=== PATIENT | female | born 1990 | race Caucasian/White ===

== ENCOUNTER 2018-08-08 10:21 | Inpatient (IN) | payer OTHER ==
--- NOTE | 2018-08-08 10:51 | PDOC ---
History of Present Illness - General History Source: Patient Exam Limitations: No Limitations - History of Present Illness Initial Comments: 08/08/18 11:09 The patient is a 28 year old female, with no significant past medical history, who presents to the emergency department with left hand and left forearm pain, redness, and swelling since sustaining a dog bite to her anterior wrist on Thursday. 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 She states a friend had cephalexin at home and she reportedly took a 1,000 mg dose on Thursday. She states the redness, pain and swelling to left left forearm, wrist and hand have been increasing despite the dose of antibiotic. She states she is unable to make a fist secondary to pain and swelling. She states she can not fully extend her left digits secondary to a shooting pain radiating from her antecubital region to the palmar aspect of her proximal left hand. She reports severe pain on palpation of her left thumb and hand. She states she was "milking her arm" yesterday and "pus" came out from the bite. She denies draining since. She denies numbness or tingling to her left hand or digits. She denies alleviating factors of her symptoms. Secondarily, she states she felt very hot yesterday but denies taking her temperature. She states she has not eaten anything since last night. She states she is visiting her mother this weekend, but has a PCP where she live [facility] (Dr. Tran). The patient denies chest pain, shortness of breath, headache and dizziness. The patient denies fever, chills, nausea, vomit, diarrhea and constipation. The patient denies dysuria, frequency, urgency and hematuria. Allergies: NKDA Past surgical history: none reported <Miguelina Johansen - Last Filed: 08/08/18 11:27> <Hazel Méndez - Last Filed: 08/08/18 14:23> - General Chief Complaint: Bite Stated Complaint: DOG BITE Time Seen by Provider: 08/08/18 10:51 Past History <Miguelina Johansen - Last Filed: 08/08/18 11:27> - Past Medical History COPD: No - Immunization History Immunization Up to Date: Yes - Suicide/Smoking/Psychosocial Hx Smoking History: Never smoked Hx Alcohol Use: No Drug/Substance Use Hx: No <Hazel Méndez - Last Filed: 08/08/18 14:23> - Past Medical History Allergies/Adverse Reactions: Allergies Allergy/AdvReac Type Severity Reaction Status Date / Time No Known Allergies Allergy Verified 08/08/18 10:22 Review of Systems - Review of Systems Able to Perform ROS?: Yes Comments:: 08/08/18 11:10 GENERAL/CONSTITUTIONAL: No fever or chills. No weakness. HEAD, EYES, EARS, NOSE AND THROAT: No change in vision. No ear pain or discharge. No sore throat. GASTROINTESTINAL: No nausea, vomiting, diarrhea or constipation. GENITOURINARY: No dysuria, frequency, or change in urination. CARDIOVASCULAR: No chest pain or shortness of breath. RESPIRATORY: No cough, wheezing, or hemoptysis. MUSCULOSKELETAL: (+) left forearm, wrist, and hand pain and swelling. No neck or back pain. SKIN: (+) left forearm and left hand redness. NEUROLOGIC: No headache, vertigo, loss of consciousness, or change in strength/ sensation. ENDOCRINE: No increased thirst. No abnormal weight change. HEMATOLOGIC/LYMPHATIC: No anemia, easy bleeding, or history of blood clots. ALLERGIC/IMMUNOLOGIC: No hives or skin allergy. <Miguelina Johansen - Last Filed: 08/08/18 11:27> *Physical Exam - Vital Signs Last Vital Signs Temp Pulse Resp BP Pulse Ox 98.3 F 75 18 112/68 100 08/08/18 10:23 08/08/18 10:23 08/08/18 10:23 08/08/18 10:23 08/08/18 10:23 - Physical Exam Comments: 08/08/18 11:12 Constitutional: Awake, alert, oriented. No acute distress. Head: Normocephalic. Atraumatic Eyes: PERRL. EOMI. Conjunctivae are not pale. ENT: Mucous membranes are moist and intact. Posterior pharynx without exudates or erythema. Uvula midline. Neck: Supple. Full ROM. No lymphadenopathy. Cardiovascular: Regular rate. Regular rhythm. S1, S2 regular. Distal pulses are 2+ and symmetric. Pulmonary/Chest: No evidence of respiratory distress. Clear to auscultation bilaterally No wheezing, rales or rhonchi. Abdominal: Soft and non-distended. There is no tenderness. No rebound, guarding or rigidity. No organomegaly. No palpable masses. Good bowel sounds. Back: No CVA tenderness. Musculoskeletal: (+) The left upper extremity is edematous and cellulitic from mid forearm extending to palm and through the web space of 1st and 2nd digit as well as up the posterior aspect of the left thumb. Theres is tenderness on palpation to the left thumb. There is a puncture wound to the volar aspect of left wrist which is closed without active drainage. There is pain with flexion and extension of all left digits with increased pain with flexion/extension of the left thumb. The left forearm, wrist and hand is edematous. There is no area of fluctuance or induration. Compartments are soft. Sensation intact to light touch. No cyanosis. No clubbing. Nocalf tenderness. Radial/pedal pulses are intact and 2+ bilaterally Skin: Skin is warm and dry. No petechiae. No purpura. Neurological: Alert and oriented to person, place, and time. Cranial nerves II -XII are grossly intact. Normal speech. Strength is grossly symmetric. No sensory deficits. Psychiatric: Good eye contact. Normal interaction, affect and behavior. <Miguelina Johansen - Last Filed: 08/08/18 11:27> - Vital Signs Last Vital Signs Temp Pulse Resp BP Pulse Ox 98.3 F 75 18 112/68 100 08/08/18 10:23 08/08/18 10:23 08/08/18 10:23 08/08/18 10:23 08/08/18 10:23 <Hazel Méndez - Last Filed: 08/08/18 14:23> Moderate Sedation - Procedure Monitoring Vital Signs: Procedure Monitoring Vital Signs Temperature 98.3 F 08/08/18 10:23 Pulse Rate 75 08/08/18 10:23 Respiratory Rate 18 08/08/18 10:23 Blood Pressure 112/68 08/08/18 10:23 O2 Sat by Pulse Oximetry (%) 100 08/08/18 10:23 <Miguelina Johansen - Last Filed: 08/08/18 11:27> - Procedure Monitoring Vital Signs: Procedure Monitoring Vital Signs Temperature 98.3 F 08/08/18 10:23 Pulse Rate 75 08/08/18 10:23 Respiratory Rate 18 08/08/18 10:23 Blood Pressure 112/68 08/08/18 10:23 O2 Sat by Pulse Oximetry (%) 100 08/08/18 10:23 <Hazel Méndez - Last Filed: 08/08/18 14:23> ED Treatment Course - LABORATORY CBC & Chemistry Diagram: 08/08/18 12:10 08/08/18 12:10 <Hazel Méndez - Last Filed: 08/08/18 14:23> Medical Decision Making - Medical Decision Making 08/08/18 11:38 a/p: 28yo female with LUE cellulitis/dog bite that failed outpt abx -spreading cellulitis, spreading distally into hand and proximally up the forearm -took Keflex, worsening cellulitis -will send labs, cultures, broad spectrum abx -discussed the case with Dr. Gage who has seen the patient in consult from ortho - requests MRI w/wo contrast of LUE to eval for an abscess -call placed to plastics/hand - Dr. Mullen - pending call back -zosyn and vanco ordered 08/08/18 12:[address] Mullen - agrees with iv abx - agrees with admission unable to eval the patient in consult at this time as he is not in the state. 08/08/18 14:21 case discussed with [facility] who accepts pt to service <Hazel Méndez - Last Filed: 08/08/18 14:23> *DC/Admit/Observation/Transfer - Attestations Scribe Attestion: 08/08/18 11:17 Documentation prepared by Miguelina Johansen, acting as medical record administrator for Hazel Méndez DO <Miguelina Johansen - Last Filed: 08/08/18 11:27> - Discharge Dispostion Decision to Admit order: Yes - Attestations Physician Attestion: 08/08/18 14:23 I, Dr. Hazel Méndez DO, attest that this document has been prepared under my direction and personally reviewed by me in its entirety. I further attest, that it accurately reflects all work, treatment, procedures and medical decision -making performed by me. <Hazel Méndez - Last Filed: 12/23/18 14:23> Diagnosis at time of Disposition: Dog bite, Left arm cellulitis - Discharge Dispostion Condition at time of disposition: Fair
[2018-08-08] MEDS ORDERED: DIPHTH,PERTUSS(ACELL),TET 0.5 ML DISP.SYRIN IM ONE ×2 (11:05→17:08)
[2018-08-08] MEDS ORDERED: PIPERACILLIN/TAZOB 4.5 GM 4.5 GM in DEXTROSE 5%-WATER 100 ML IVPB ONE (11:05)
[2018-08-08] MEDS ORDERED: VANCOMYCIN 1 GRAM (PRE-DOCKED) 1,000 MG/250 ML BAG IVPB ONE ×2 (11:22→12:16)
--- NOTE | 2018-08-08 11:34 | CONSULT ---
Consult - text type - Consultation Consultation Note: ORTHOPEDIC SURGERY CONSULTATION NOTE Department of Orthopedic Surgery HISTORY OF PRESENT ILLNESS Sharron Rangel is a 28 year old female who resents to [facility] Emergency Room with a left wrist and arm cellullitis. The orthopedic service was consulted for left wrist cellulitis and 1st web-space with thumb pain. The injury occurred while at work, when her dog bit into her wrist. She took her friend's keflex oral antibiotics at home, however the erythema increased over the last couple days. She states the puncture wound was open and she was able to express some discharge, however it closed up since then. She has had no discharge since yesterday. The patient notes pain in her thumb, with erythema that has increased and began to move up her forearm. Denies any other injuries. Denies numbness, tingling or other constitutional complaints. Denies fever or chills. Denies/Endorses tobacco use, drug use, alcohol abuse. The patient lives alone at home with her dog. FAMILY HISTORY NA REVIEW OF SYMPTOMS A twelve-point review of systems was performed and was negative except as noted in HPI. PHYSICAL EXAM Constitutional: Alert and oriented to person, place, and time. Appears well- developed and well-nourished. No acute distress, appropriate mood and affect. Right Upper Extremity: Skin warm, dry, and intact; no lesions, rashes or ulcers noted. Muscle mass equal and symmetric to contralateral side. No atrophy noted. No masses or effusions noted. No tenderness to palpation all joints, nontender throughout rest of extremity. Full passive and active ROM, free from pain. Joints stable with no pathologic laxity. M/R/U/MSK/AX motor intact; SILT distally; 2+ radial pulses; Cap refill brisk. Tone and reflexes normal. Left Upper Extremity: Skin warm, dry. There is significant erythema at the level of her wrist, which tracks proximally. She also has erythema and swelling of her palm, and has pain with ROM of her thumb and index fingers. She is able to flex all fingers with pain. No atrophy noted. No fluctuance noted. Tender to palpation at the thenar eminence and thumb, nontender throughout rest of extremity. Full passive and active ROM, free from pain of the wrist, elbow and shoulder. Joints stable with no pathologic laxity. M/R/U/MSK/AX motor intact; SILT distally; 2+ radial pulses; Cap refill brisk. Tone and reflexes normal. Social History Smoking history Never smoked Hx Alcohol Use No Allergies Allergy/AdvReac Type Severity Reaction Status Date / Time No Known Allergies Allergy Verified 08/08/18 10:22 Active Medications Generic Name Dose Route Start Last Admin Trade Name Freq PRN Reason Stop Dose Admin Piperacillin Sod/Tazobactam 100 mls @ 200 mls/hr 08/08/18 11:05 Sod 4.5 gm/ Dextrose IVPB 08/08/18 11:34 ONCE ONE Protocol Vital Signs (last) Temp Pulse Resp BP Pulse Ox 98.3 F 75 18 112/68 100 08/08/18 10:23 08/08/18 10:23 08/08/18 10:23 08/08/18 10:23 08/08/18 10:23 Intake and Output 08/06/18 08/07/18 08/08/18 23:59 23:59 23:59 Other: Weight 150 lb Height 5 ft 3 in Body Mass Index (BMI) 26.5 Weight Measurement Method Est/Stated by Patient IMAGING X-rays of the left wrist and hand pending. MRI of the left wrist and hand pending. ASSESSMENT AND PLAN Ms. Rangel is a 28 year old female presenting with left hand and wrist cellulitis and swelling. We have reviewed the clinical findings in detail, as well as their potential implications. After appropriate informed discussion, the patient will be admitted for IV antibiotics and further imaging. FU MRI and Xray Left wrist and hand. NPO until MRI is obtained. Hand Surgery consult CBC/BMP/Coags CRP/ESR - Medical management (IV Abx, follow up labs) All questions were answered. Thank you for involving our team in the care of this patient. We will follow the patient with you. Please call us at with questions. Nicola Gage, DO Orthopedic Surgery
[2018-08-08] MEDS ORDERED: PIPERACILLIN/TAZOB 4.5 GM 4.5 GM/100 ML BAG IVPB ONE (12:16)
[2018-08-08 12:22] LABS: BASO % 0.5 % (0-2.0); EOS % 0.3 % (0-4.5); HEMATOCRIT 37.9 % (32.4-45.2); HEMOGLOBIN 13.4 GM/dL (10.7-15.3); LYMPH % 14.4 % (8-40); MCH 31.7 pg (25.7-33.7); MCHC 35.3 g/dl (32.0-36.0); MEAN CELL VOLUME 89.6 fl (80-96); MEAN PLT VOLUME 8.4 fl (7.5-11.1); MONO % 9.2 % (3.8-10.2); NEUT % 75.6 % (42.8-82.8); PLATELET COUNT 216 K/MM3 (134-434); RBC 4.23 M/mm3 (3.60-5.2); RDW 13.1 % (11.6-15.6)
[2018-08-08 12:48] LABS: HCG,QUALITATIVE URINE Negative
[2018-08-08 12:50] LABS: ALBUMIN 4.1 g/dl (3.4-5.0); ALK PHOS 78 U/L (45-117); ANION GAP 5 MMOL/L (8-16); BILIRUBIN,TOTAL 0.4 mg/dL (0.2-1); BLOOD UREA NITROGEN 10 mg/dL (7-18); CALCIUM 8.5 mg/dL (8.5-10.1); CHLORIDE 111 mmol/L (98-107); CO2 25 mmol/L (21-32); CREATININE 0.6 mg/dL (0.55-1.3); GLUCOSE,RANDOM 85 mg/dL (74-106); POTASSIUM 4.1 mmol/L (3.5-5.1); SGOT/AST 13 U/L (15-37); SGPT/ALT 14 U/L (13-61); SODIUM 142 mmol/L (136-145); TOT PROT 7.2 g/dl (6.4-8.2)
--- NOTE | 2018-08-08 13:23 | PN ---
Teaching Attending Note Name of Resident: Julia Baer ATTENDING PHYSICIAN STATEMENT I saw and evaluated the patient. I reviewed the resident's note and discussed the case with the resident. I agree with the resident's findings and plan as documented. SUBJECTIVE: Patient is a 28yo female presented with a dog bite from 2 days back, was bit by a [place] dog. She grooms dogs. No fever or chills, started to have swelling and erythema of the left hand and wrist area. OBJECTIVE: Vital Signs Temperature 98.3 F 08/08/18 10:23 Pulse Rate 75 08/08/18 10:23 Respiratory Rate 18 08/08/18 10:23 Blood Pressure 112/68 08/08/18 10:23 O2 Sat by Pulse Oximetry (%) 100 08/08/18 10:23 GENERAL: Awake, alert, and fully oriented, in no acute distress. HEAD: Normal with no signs of trauma. EYES: Pupils equal, round and reactive to light, extraocular movements intact, sclera anicteric, conjunctiva clear. EARS, NOSE, THROAT: Ears normal, oropharynx clear without exudates. Moist mucous membranes. NECK: Normal range of motion, supple without lymphadenopathy, JVD, or masses. LUNGS: Breath sounds equal, clear to auscultation bilaterally. No wheezes, and no crackles. No accessory muscle use. HEART: Regular rate and rhythm, normal S1 and S2 without murmur, rub or gallop. ABDOMEN: Soft, nontender, not distended, normoactive bowel sounds, no guarding, no rebound, no masses. No hepatomegaly or splenomegaly. MUSCULOSKELETAL: Normal range of motion at all joints. No bony deformities or tenderness. No CVA tenderness. EXTREMITIES: 2+ pulses, warm, well-perfused. positive for erythema of left wrist and hand. NEUROLOGICAL: Cranial nerves II-XII intact. Normal speech. Normal gait. PSYCHIATRIC: Cooperative. Good eye contact. Appropriate mood and affect. SKIN: Warm, dry, normal turgor, no rashes or lesions noted, normal capillary refill. CBCD WBC 7.0 K/mm3 (4.0-10.0) 08/08/18 12:10 RBC 4.23 M/mm3 (3.60-5.2) 08/08/18 12:10 Hgb 13.4 GM/dL (10.7-15.3) 08/08/18 12:10 Hct 37.9 % (32.4-45.2) 08/08/18 12:10 MCV 89.6 fl (80-96) 08/08/18 12:10 MCHC 35.3 g/dl (32.0-36.0) 08/08/18 12:10 RDW 13.1 % (11.6-15.6) 08/08/18 12:10 Plt Count 216 K/MM3 (134-434) 08/08/18 12:10 MPV 8.4 fl (7.5-11.1) 08/08/18 12:10 CMP Sodium 142 mmol/L (136-145) 08/08/18 12:10 Potassium 4.1 mmol/L (3.5-5.1) 08/08/18 12:10 Chloride 111 mmol/L (98-107) H 08/08/18 12:10 Carbon Dioxide 25 mmol/L (21-32) 08/08/18 12:10 Anion Gap 5 MMOL/L (8-16) L 08/08/18 12:10 BUN 10 mg/dL (7-18) 08/08/18 12:10 Creatinine 0.6 mg/dL (0.55-1.3) 08/08/18 12:10 Creat Clearance w eGFR > 60 (>60) 08/08/18 12:10 Random Glucose 85 mg/dL (74-106) 08/08/18 12:10 Calcium 8.5 mg/dL (8.5-10.1) 08/08/18 12:10 Total Bilirubin 0.4 mg/dL (0.2-1) 08/08/18 12:10 AST 13 U/L (15-37) L 08/08/18 12:10 ALT 14 U/L (13-61) 08/08/18 12:10 Alkaline Phosphatase 78 U/L (45-117) 08/08/18 12:10 Total Protein 7.2 g/dl (6.4-8.2) 08/08/18 12:10 Albumin 4.1 g/dl (3.4-5.0) 08/08/18 12:10 ASSESSMENT AND PLAN: Patient is a 28 year old female presenting with left hand and wrist cellulitis with swelling due to a dog bite. #Acute cellulitis of left hand and wrist due to dog bite, received IV antibiotic , teteanus shot, ID consulted, MRI result no osteo and abcess, just edema. cxr reviewed, Continue Zosyn IV , id will see the patient. DVt Px: early walking. low risk.
--- NOTE | 2018-08-08 13:35 | HP ---
CHIEF COMPLAINT:dog bite, Left hand wound PCP:Dr. Tran HISTORY OF PRESENT ILLNESS: Patient is a 28 year old female with no significant past medical history, presented with left hand wound, accompanied with pain, redness and swelling that started 2 days ago after a dog bite. 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 Patient reported the dog is complete with vaccinations. Few hours after the incident, patient noted pain, redness and swelling, spreading proximally to the forearm and distally to the palm. She took Cefalexin 1g that night. Yesterday, she noted worsening of the symptoms, as well as experiencing chills, and continued to take Cefalexin and Naproxen for pain. Today, patient came to the ED as the pain, swelling and redness has worsened. She also reported because of the pain, she can not close her left hand and form a fist, nor extend it fully. Patient denies fever, headache, dizziness, nausea, vomiting, chest pain, SOB, palpitations, abdominal pain, diarrhea, constipation or urinary symptoms. ER course was notable for: (1)DPT vaccine, IV vancomycin 1000mg, Zosyn 4.5gm (2)Left hand and wrist xray, LUE MRI with and without contrast (3)CRP 9.7 Recent Travel:denies PAST MEDICAL HISTORY: None PAST SURGICAL HISTORY: None Social History: Smoking:denies Alcohol:denies Drugs: denies Lives with . 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 Family History: Patient is adopted. Her adoptive parents are healthy otherwise. Allergies No Known Allergies Allergy (Verified 08/08/18 10:22) HOME MEDICATIONS: REVIEW OF SYSTEMS CONSTITUTIONAL: Absent: fever, chills, diaphoresis, generalized weakness, malaise, loss of appetite, weight change HEENT: Absent: rhinorrhea, nasal congestion, throat pain, throat swelling, difficulty swallowing, mouth swelling, ear pain, eye pain, visual changes CARDIOVASCULAR: Absent: chest pain, syncope, palpitations, irregular heart rate, lightheadedness , peripheral edema RESPIRATORY: Absent: cough, shortness of breath, dyspnea with exertion, orthopnea, wheezing, stridor, hemoptysis GASTROINTESTINAL: Absent: abdominal pain, abdominal distension, nausea, vomiting, diarrhea, constipation, melena, hematochezia GENITOURINARY: Absent: dysuria, frequency, urgency, hesitancy, hematuria, flank pain, genital pain MUSCULOSKELETAL: Absent: myalgia, arthralgia, joint swelling, back pain, neck pain, left hand swelling, redness SKIN: Absent: rash, itching, pallor HEMATOLOGIC/IMMUNOLOGIC: Absent: easy bleeding, easy bruising, lymphadenopathy, frequent infections ENDOCRINE: Absent: unexplained weight gain, unexplained weight loss, heat intolerance, cold intolerance NEUROLOGIC: Absent: headache, focal weakness or paresthesias, dizziness, unsteady gait, seizure, mental status changes, bladder or bowel incontinence PSYCHIATRIC: Absent: anxiety, depression, suicidal or homicidal ideation, hallucinations. PHYSICAL EXAMINATION Vital Signs - 24 hr 08/08/18 10:23 Temperature 98.3 F Pulse Rate 75 Respiratory 18 Rate Blood Pressure 112/68 O2 Sat by Pulse 100 Oximetry (%) GENERAL: Awake, alert, and fully oriented, in no acute distress. HEAD: Normal with no signs of trauma. EYES: PERRLA, EOMI, sclera anicteric, conjunctiva clear. No lid lag. EARS, NOSE, THROAT: Ears normal, nares patent, oropharynx clear without exudates. Moist mucous membranes. NECK: Normal range of motion, supple without lymphadenopathy, JVD, or masses. LUNGS: Breath sounds equal, clear to auscultation bilaterally. HEART: Regular rate and rhythm, normal S1 and S2 without murmur, rub or gallop. ABDOMEN: Soft, nontender, not distended, normoactive bowel sounds. LUE: +erythema, swelling, tenderness of palm and anterior forearm. +closed wound in the anterior wrist. Flexion, extension, abduction,adduction of fingers , as well as flexion and extension of wrist limited due to pain. Unable to make a fist. UPPER EXTREMITIES: 2+ pulses, warm, well-perfused. No cyanosis. LOWER EXTREMITIES: 2+ pulses, warm, well-perfused. No calf tenderness. No peripheral edema. NEUROLOGICAL: AAOx3, Cranial nerves II-XII intact. Normal speech. Normal gait. PSYCHIATRIC: Cooperative. Good eye contact. Appropriate mood and affect. SKIN: Warm, dry, normal turgor, no rashes or lesions noted, normal capillary refill. Laboratory Results - last 24 hr 12/23/18 12/23/18 12/23/18 12:10 12:10 12:10 WBC 7.0 RBC 4.23 Hgb 13.4 Hct 37.9 MCV 89.6 MCH 31.7 MCHC 35.3 RDW 13.1 Plt Count 216 MPV 8.4 Absolute Neuts (auto) 5.3 Neutrophils % 75.6 Lymphocytes % 14.4 Monocytes % 9.2 Eosinophils % 0.3 Basophils % 0.5 Nucleated RBC % 0 Sodium 142 Potassium 4.1 Chloride 111 H Carbon Dioxide 25 Anion Gap 5 L BUN 10 Creatinine 0.6 Creat Clearance w eGFR > 60 Random Glucose 85 Lactic Acid 0.4 Calcium 8.5 Total Bilirubin 0.4 AST 13 L ALT 14 Alkaline Phosphatase 78 C-Reactive Protein 9.7 H Total Protein 7.2 Albumin 4.1 Urine HCG, Qual 08/08/18 12:23 WBC RBC Hgb Hct MCV MCH MCHC RDW Plt Count MPV Absolute Neuts (auto) Neutrophils % Lymphocytes % Monocytes % Eosinophils % Basophils % Nucleated RBC % Sodium Potassium Chloride Carbon Dioxide Anion Gap BUN Creatinine Creat Clearance w eGFR Random Glucose Lactic Acid Calcium Total Bilirubin AST ALT Alkaline Phosphatase C-Reactive Protein Total Protein Albumin Urine HCG, Qual Negative ASSESSMENT/PLAN: Patient is a 28 year old female with no significant past medical history, presented with left hand wound, accompanied with pain, redness and swelling that started 2 days ago after a dog bite. #Cellulitis, 2/2 to dog bite -Left hand/forearm Xray done -LUE MRI: Soft tissue swelling at the palpable site in the superior and anterior aspect of the left wrist compatible with cellulitis or edema. No evidence of abscess collection. No evidence of osteomyelitis. No evidence of flexor tendons tear or retraction. No evidence of tenosynovitis. -Ortho (Dr. Gage) consulted. Recommendations appreciated. -ID (Dr. Amanda) consulted. -Blood cultures pending -Tetanus vaccine given at the ED -IV Vancomycin 1gm and IV Zosyn 4.5 gm given at the ED -CRP/ESR pending #FEN -Not on any standing fluids. -Encourage increased oral fluid intake -electrolytes wnl, routine bmp monitoring -regular diet #Prophylaxis -early ambulation #Disposition -full code -admit to med-surg Visit type - Emergency Visit Emergency Visit: Yes ED Registration Date: 08/08/18 Care time: The patient presented to the Emergency Department on the above date and was hospitalized for further evaluation of their emergent condition. - New Patient This patient is new to me today: Yes Date on this admission: 08/08/18 - Critical Care Critical Care patient: No
[2018-08-08 14:18] LABS: URINE APPEARANCE CLOUDY; URINE BILIRUBIN NEGATIVE (<2.0 mg/dL); URINE COLOR DKYELLOW; URINE GLUCOSE (UA) NEGATIVE (NEGATIVE); URINE KETONE NEGATIVE (NEGATIVE); URINE LEUK ESTERASE 1+ (NEGATIVE); URINE NITRITE NEGATIVE (NEGATIVE); URINE PROTEIN 1+ (NEGATIVE); URINE UROBILINOGEN NEGATIVE mg/dL (0.2-1.0)
[2018-08-08 14:54] LABS: EPI CELLS FEW /HPF (FEW); URINE BACTERIA MODERATE /hpf (NONE SEEN); URINE MUCUS MANY
[2018-08-08] MEDS ORDERED: PIPERACILLIN/TAZOBACTAM 3.375 GM VIAL IVPB ONE (19:58)
[2018-08-08] MEDS: PIPERACILLIN/TAZOB 3.375 GM 3.375 GM in DEXTROSE 5%-WATER - 50 ML IVPB SCH (19:58)
[2018-08-08] MEDS ORDERED: DEXTROSE 5%-WATER - 50 ML IVPB ONE (19:59)
[2018-08-08] MEDS ORDERED: PT OWN MED DRAWER 7, Y5N ONE (21:20)
[2018-08-08] MEDS ORDERED: ACETAMINOPHEN 325 MG TABLET (FP) PO PRN (22:42)
[2018-08-09] MEDS ORDERED: PIPERACILLIN/TAZOBACTAM 3.375 GM VIAL IVPB ONE ×2 (01:10→10:01)
[2018-08-09] MEDS ORDERED: DEXTROSE 5%-WATER - 50 ML IVPB ONE ×2 (01:10→10:01)
[2018-08-09] MEDS: PIPERACILLIN/TAZOB 3.375 GM 3.375 GM in DEXTROSE 5%-WATER - 50 ML IVPB SCH ×3 (01:31→11:59)
[2018-08-09 02:32] VITALS: BMI 27.3
[2018-08-09 08:04] LABS: BASO % 0.7 % (0-2.0); EOS % 1.8 % (0-4.5); HEMATOCRIT 35.3 % (32.4-45.2); HEMOGLOBIN 11.8 GM/dL (10.7-15.3); LYMPH % 23.5 % (8-40); MCH 30.1 pg (25.7-33.7); MCHC 33.5 g/dl (32.0-36.0); MEAN CELL VOLUME 89.7 fl (80-96); MEAN PLT VOLUME 8.9 fl (7.5-11.1); MONO % 12.1 % (3.8-10.2); NEUT % 61.9 % (42.8-82.8); PLATELET COUNT 198 K/MM3 (134-434); RBC 3.94 M/mm3 (3.60-5.2); RDW 12.8 % (11.6-15.6); WHITE BLOOD COUNT 5.2 K/mm3 (4.0-10.0)
[2018-08-09 08:24] LABS: ANION GAP 7 MMOL/L (8-16); BLOOD UREA NITROGEN 10 mg/dL (7-18); CALCIUM 8.3 mg/dL (8.5-10.1); CHLORIDE 110 mmol/L (98-107); CO2 24 mmol/L (21-32); CREATININE 0.5 mg/dL (0.55-1.3); GLUCOSE,RANDOM 92 mg/dL (74-106); MAGNESIUM 2.2 mg/dL (1.8-2.4); PHOSPHOROUS 4.4 mg/dL (2.5-4.9); POTASSIUM 4.2 mmol/L (3.5-5.1); SODIUM 141 mmol/L (136-145)
--- NOTE | 2018-08-09 10:14 | CON.ID ---
Consult Consult Specialty:: infectious disease Referred by:: hosplitalist Reason for Consultation:: cellulitis s/p dog bite - History of Present Illness Chief Complaint: left hand dog bite History of Present Illness: 28 yo female admitted after she sustained a dog bite to her left hand on Thursday while at work-dog is UTD on vaccines SHe soaked the woud in iodine and wrapped it she started taking cephelexin 100 mg bid after going home (her friend s medicine) and naprosyn she noted the arm got worse and she came to ED last night MRI of the arm no abscess or osteo +STS started on vanco/zosyn no fevers otherwise well - History Source History Provided By: Patient, Medical Record Limitations to Obtaining History: No Limitations - Past Medical History Reproductive: Yes: Other (IUD) - Alcohol/Substance Use Hx Alcohol Use: No - Smoking History Smoking history: Never smoked - Social History Usual Living Arrangement: With Spouse ADL: Independent Occupation: [employer] Home Medications - Allergies Allergies/Adverse Reactions: Allergies Allergy/AdvReac Type Severity Reaction Status Date / Time No Known Allergies Allergy Verified 08/08/18 10:22 - Home Medications Home Medications: Ambulatory Orders NK [No Known Home Medication] 08/08/18 Family Disease History - Family Disease History Family History: Unable to Obtain (adoopted) Review of Systems - Review of Systems Constitutional: reports: No Symptoms, Chills, Diaphoresis, Fever Eyes: reports: No Symptoms HENT: reports: No Symptoms Neck: reports: No Symptoms Cardiovascular: reports: No Symptoms Respiratory: reports: No Symptoms Gastrointestinal: reports: No Symptoms Musculoskeletal: reports: Other (hand pain, unable to make a fist) Physical Exam Vital Signs: Vital Signs Temperature 97.7 F 08/09/18 06:00 Pulse Rate 56 L 08/09/18 06:00 Respiratory Rate 18 08/09/18 06:00 Blood Pressure 92/56 L 08/09/18 06:00 O2 Sat by Pulse Oximetry (%) 100 08/08/18 18:16 Constitutional: Yes: Well Nourished, No Distress, Calm Eyes: Yes: Conjunctiva Clear, EOM Intact HENT: Yes: Atraumatic, Normocephalic Neck: Yes: Supple, Trachea Midline Cardiovascular: Yes: Regular Rate and Rhythm Respiratory: Yes: Regular, CTA Bilaterally Gastrointestinal: Yes: Normal Bowel Sounds ...Rectal Exam: Yes: Deferred Musculoskeletal: Yes: Other (erythema left hand extending to forearm no fluctuance unable to make a fist no axillary adenopathy, no lylmphangitic streaking) Neurological: Yes: Alert, Oriented Labs: CBC, BMP 08/09/18 07:00 08/09/18 07:00 Laboratory Tests 08/08/18 08/08/18 12:10 12:10 ESR 18 C-Reactive Protein 9.7 H Imaging - Results X-ray: Report Reviewed MRI: Report Reviewed Problem List - Problems (1) Infected dog bite Code(s): W54.0XXA - BITTEN BY DOG, INITIAL ENCOUNTER; L08.9 - LOCAL INFECTION OF THE SKIN AND SUBCUTANEOUS TISSUE, UNSP Assessment/Plan continue vancomycin and zosyn f/u cultures no signs abscess or osteo on MRI day #1 antiibotics surgery following s/p tetanus toxoid
[2018-08-09] MEDS ORDERED: DEXTROSE 5%-WATER 100 ML IVPB ONE ×2 (11:09→18:09)
[2018-08-09] MEDS ORDERED: PIPERACILLIN/TAZOBACTAM 4.5 GM VIAL IVPB ONE ×2 (11:09→18:09)
--- NOTE | 2018-08-09 11:09 | PN ---
Progress Note (short form) - Note Progress Note: ORTHOPEDIC SURGERY PROGRESS NOTE Department of Orthopedic Surgery SUBJECTIVE No acute events overnight. No complaints currently. Denies chest pain, shortness of breath, or calf pain. No nausea or vomiting. Tolerating oral intake. Pain control difficult overnight, but improving. Patient stated she had some difficulty sleeping last night. PHYSICAL EXAMINATION General: Alert, oriented, cooperative and no distress. Left Upper Extremity: Skin intact, erythema has increased past markings. Muscle mass equal and symmetric to contralateral side. No atrophy noted. No masses or effusions noted. No tenderness to palpation. Improved ROM of the thumb and wrist. M/R/U/MSK/AX motor intact; SILT distally; 2+ radial pulses; Cap refill brisk. Intake & Output 08/07/18 08/08/18 08/09/18 23:59 23:59 23:59 Intake Total 400 400 Balance 400 400 Intake: IVPB 100 Oral 400 300 Other: Voiding Method Toilet Toilet # Unmeasured Voids Void 1 2 Bowel Movement No Weight 150 lb 154 lb 9 oz Height 5 ft 3 in 5 ft 3 in Body Mass Index (BMI) 26.5 27.3 Weight Measurement Method Built in [facility] Weight Measurement Method Est/Stated by Patient Active Medications Generic Name Dose Route Start Last Admin Trade Name Freq PRN Reason Stop Dose Admin Acetaminophen 650 mg 08/08/18 22:42 Tylenol - PO Q4H PRN FEVER Vancomycin HCl 1,000 mg in 250 mls @ 166.667 mls/hr 08/09/18 11:00 Vancomycin (Pre-Docked) IVPB Q12H LEOLA Protocol Piperacillin Sod/Tazobactam 100 mls @ 200 mls/hr 08/09/18 10:30 Sod 4.5 gm/ Dextrose IVPB Q8H-IV LEOLA Protocol Naproxen 500 mg 08/09/18 10:30 Naprosyn - PO 08/10/18 22:01 BID LEOLA Pantoprazole Sodium 40 mg 08/09/18 10:30 Protonix - PO DAILY LEOLA Vital Signs (last) Temp Pulse Resp BP Pulse Ox 97.7 F 56 L 18 92/56 L 100 08/09/18 06:00 08/09/18 06:00 08/09/18 06:00 08/09/18 06:00 08/08/18 18:16 Laboratory 08/09/18 07:00 08/09/18 07:00 IMAGING MRI Left wrist / hand: +Edema and cellulitis, no signs of osteomyelitis or abscess. ASSESSMENT AND PLAN Ms. Rangel is a 28 year old female presenting with left hand and wrist cellulitis and swelling s/p dog bite. - Pain Control - Appreciate ID recommendations - Medical management appreciated (IV Abx, follow up blood cx) - No orthopedic intervention at this time - Will follow closely All questions were answered. Nicola Gage, DO Orthopedic Surgery
[2018-08-09] MEDS: PIPERACILLIN/TAZOB 4.5 GM 4.5 GM in DEXTROSE 5%-WATER 100 ML IVPB SCH ×2 (11:15→18:18)
[2018-08-09] MEDS ORDERED: PT OWN MED DRAWER 7, Y5N ONE ×3 (12:01→21:41)
[2018-08-09] MEDS: PANTOPRAZOLE 40 MG TABLET (FP) PO SCH (12:04)
[2018-08-09] MEDS: VANCOMYCIN 1 GRAM (PRE-DOCKED) 1,000 MG/250 ML BAG IVPB SCH ×2 (12:04→22:39)
--- NOTE | 2018-08-09 12:10 | PN ---
Physical Exam: SUBJECTIVE: Patient seen and examined at bedside this morning. Patient reported she was not able to sleep last night because of all the noise and wants to go home. Redness on her hand is noted to spread further than the line drawn yesterday. Patient denies any worsening pain or swelling. Denies any fever, chills, headache, numbness, weakness or tingling. OBJECTIVE: Vital Signs Period Temp Pulse Resp BP Sys/Morton Pulse Ox Last 24 Hr 97.7 F-98.3 F 56-86 18-20 92-121/56-77 100-100 GENERAL: Awake, alert, and fully oriented, in no acute distress. HEAD: Normal with no signs of trauma. EYES: PERRLA, EOMI, sclera anicteric, conjunctiva clear. No lid lag. EARS, NOSE, THROAT: Ears normal, nares patent, oropharynx clear without exudates. Moist mucous membranes. NECK: Normal range of motion, supple without lymphadenopathy, JVD, or masses. LUNGS: Breath sounds equal, clear to auscultation bilaterally. HEART: Regular rate and rhythm, normal S1 and S2 without murmur, rub or gallop. ABDOMEN: Soft, nontender, not distended, normoactive bowel sounds. LUE: +erythema, swelling, tenderness of palm and anterior forearm. Erythema noted to spread further proximally than the line drawn, +closed, non-draining wound in the anterior wrist. Flexion, extension, abduction,adduction of fingers , as well as flexion and extension of wrist limited due to pain. Unable to make a fist. UPPER EXTREMITIES: 2+ pulses, warm, well-perfused. No cyanosis. LOWER EXTREMITIES: 2+ pulses, warm, well-perfused. No calf tenderness. No peripheral edema. NEUROLOGICAL: AAOx3, Cranial nerves II-XII intact. Normal speech. Normal gait. PSYCHIATRIC: Cooperative. Good eye contact. Appropriate mood and affect. SKIN: Warm, dry, normal turgor, no rashes or lesions noted, normal capillary refill. Laboratory Results - last 24 hr 08/08/18 08/08/18 08/08/18 12:10 12:10 12:10 WBC RBC Hgb Hct MCV MCH MCHC RDW Plt Count MPV Absolute Neuts (auto) Neutrophils % Lymphocytes % Monocytes % Eosinophils % Basophils % Nucleated RBC % ESR 18 Sodium 142 Potassium 4.1 Chloride 111 H Carbon Dioxide 25 Anion Gap 5 L BUN 10 Creatinine 0.6 Creat Clearance w eGFR > 60 Random Glucose 85 Lactic Acid 0.4 Calcium 8.5 Phosphorus Magnesium Total Bilirubin 0.4 AST 13 L ALT 14 Alkaline Phosphatase 78 C-Reactive Protein 9.7 H Total Protein 7.2 Albumin 4.1 Urine Color Urine Appearance Urine pH Ur Specific [place] Urine Protein Urine Glucose (UA) Urine Ketones Urine Blood Urine Nitrite Urine Bilirubin Urine Urobilinogen Ur Leukocyte Esterase Urine WBC (Auto) Urine RBC (Auto) Ur Epithelial Cells Urine Bacteria Urine Mucus Urine HCG, Qual 08/08/18 08/08/18 08/09/18 12:10 12:23 07:00 WBC 7.0 5.2 RBC 4.23 3.94 Hgb 13.4 11.8 Hct 37.9 35.3 MCV 89.6 89.7 MCH 31.7 30.1 MCHC 35.3 33.5 RDW 13.1 12.8 Plt Count 216 198 MPV 8.4 8.9 Absolute Neuts (auto) 5.3 3.2 Neutrophils % 75.6 61.9 Lymphocytes % 14.4 23.5 D Monocytes % 9.2 12.1 H Eosinophils % 0.3 1.8 D Basophils % 0.5 0.7 Nucleated RBC % 0 0 ESR Sodium Potassium Chloride Carbon Dioxide Anion Gap BUN Creatinine Creat Clearance w eGFR Random Glucose Lactic Acid Calcium Phosphorus Magnesium Total Bilirubin AST ALT Alkaline Phosphatase C-Reactive Protein Total Protein Albumin Urine Color Dkyellow Urine Appearance Cloudy Urine pH 5.0 Ur Specific [place] 1.026 Urine Protein 1+ H Urine Glucose (UA) Negative Urine Ketones Negative Urine Blood 1+ H Urine Nitrite Negative Urine Bilirubin Negative Urine Urobilinogen Negative Ur Leukocyte Esterase 1+ H Urine WBC (Auto) 5 Urine RBC (Auto) 5 Ur Epithelial Cells Few Urine Bacteria Moderate Urine Mucus Many Urine HCG, Qual Negative 08/09/18 07:00 WBC RBC Hgb Hct MCV MCH MCHC RDW Plt Count MPV Absolute Neuts (auto) Neutrophils % Lymphocytes % Monocytes % Eosinophils % Basophils % Nucleated RBC % ESR Sodium 141 Potassium 4.2 Chloride 110 H Carbon Dioxide 24 Anion Gap 7 L BUN 10 Creatinine 0.5 L Creat Clearance w eGFR > 60 Random Glucose 92 Lactic Acid Calcium 8.3 L Phosphorus 4.4 Magnesium 2.2 Total Bilirubin AST ALT Alkaline Phosphatase C-Reactive Protein Total Protein Albumin Urine Color Urine Appearance Urine pH Ur Specific [place] Urine Protein Urine Glucose (UA) Urine Ketones Urine Blood Urine Nitrite Urine Bilirubin Urine Urobilinogen Ur Leukocyte Esterase Urine WBC (Auto) Urine RBC (Auto) Ur Epithelial Cells Urine Bacteria Urine Mucus Urine HCG, Qual Active Medications Generic Name Dose Route Start Last Admin Trade Name Freq PRN Reason Stop Dose Admin Acetaminophen 650 mg 08/08/18 22:42 Tylenol - PO Q4H PRN FEVER Vancomycin HCl 1,000 mg in 250 mls @ 166.667 mls/hr 08/09/18 11:00 08/09/18 12:04 Vancomycin (Pre-Docked) IVPB 166.667 mls/hr Q12H LEOLA Administration Protocol Piperacillin Sod/Tazobactam 100 mls @ 200 mls/hr 08/09/18 10:30 08/09/18 11: 15 Sod 4.5 gm/ Dextrose IVPB 200 mls/hr Q8H-IV LEOLA Administration Protocol Naproxen 500 mg 08/09/18 10:30 Naprosyn - PO 08/10/18 22:01 BID LEOLA Pantoprazole Sodium 40 mg 08/09/18 10:30 08/09/18 12:04 Protonix - PO 40 mg DAILY LEOLA Administration ASSESSMENT/PLAN: Patient is a 28 year old female with no significant past medical history, presented with left hand wound, accompanied with pain, redness and swelling that started 2 days ago after a dog bite. #Cellulitis, 2/2 to dog bite -Left hand/forearm Xray done -LUE MRI: Soft tissue swelling at the palpable site in the superior and anterior aspect of the left wrist compatible with cellulitis or edema. No evidence of abscess collection. No evidence of osteomyelitis. No evidence of flexor tendons tear or retraction. No evidence of tenosynovitis. -Ortho (Dr. Gage) consulted. Recommendations appreciated. -pain management -Naproxen 500mg BID PRN for pain -Hand surgery (Dr. Whitaker) consulted. -ID (Dr. Perez) consulted. Recommendations appreciated. -Blood cultures - no growth for 24 hours -Tetanus vaccine given at the ED -IV Vancomycin 1gm and IV Zosyn 4.5 gm given at the ED -Continue Vanc and Zosyn #FEN -Not on any standing fluids. -Encourage increased oral fluid intake -electrolytes wnl, routine bmp monitoring -regular diet #Prophylaxis -early ambulation #Disposition -full code -admit to med-surg Visit type - Emergency Visit Emergency Visit: Yes ED Registration Date: 08/08/18 Care time: The patient presented to the Emergency Department on the above date and was hospitalized for further evaluation of their emergent condition. - New Patient This patient is new to me today: No - Critical Care Critical Care patient: No
[2018-08-09] MEDS: NAPROXEN 500 MG TABLET (FP) PO SCH ×2 (12:38→21:41)
--- NOTE | 2018-08-09 13:50 | CONSULT ---
Consult Consult Specialty:: Hand and Microsurgery Reason for Consultation:: left hand dog bite - History of Present Illness Chief Complaint: left hand dog bite History of Present Illness: 28 yo RHD female no significant PMH presented with left hand wound, accompanied with pain, redness and swelling that started 2 days ago after a dog bite. Patient works as a groomer in a [employer] when a husky dog almost fell while grooming, and she was trying to catch him, startling the dog and subsequently bit her on the anterior wrist. Patient reported the dog is complete with vaccinations. Few hours after the incident, patient noted pain, redness and swelling, spreading proximally to the forearm and distally to the palm. She took Cefalexin 1g that night. Yesterday, she noted worsening of the symptoms, as well as experiencing chills, and continued to take Cefalexin and Naproxen for pain. Today, patient came to the ED as the pain, swelling and redness has worsened. She also reported because of the pain, she can not close her left hand and form a fist, nor extend it fully. Patient denies fever, headache, dizziness, nausea, vomiting, chest pain, SOB, palpitations, abdominal pain, diarrhea, constipation or urinary symptoms. - History Source History Provided By: Patient, Medical Record Limitations to Obtaining History: No Limitations - Alcohol/Substance Use Hx Alcohol Use: No - Smoking History Smoking history: Never smoked - Social History Usual Living Arrangement: With Spouse ADL: Independent Occupation: [employer] Home Medications - Allergies Allergies/Adverse Reactions: Allergies Allergy/AdvReac Type Severity Reaction Status Date / Time No Known Allergies Allergy Verified 08/08/18 10:22 - Home Medications Home Medications: Ambulatory Orders NK [No Known Home Medication] 08/08/18 Review of Systems - Review of Systems Constitutional: denies: Chills, Fever Eyes: denies: Blind Spots, Recent Change in Vision HENT: denies: Difficult Swallowing, Throat Pain Neck: denies: Decreased ROM, Pain on Movement Cardiovascular: denies: Chest Pain, Palpitations Respiratory: denies: Cough, SOB Gastrointestinal: denies: Abdominal Pain, Constipation, Diarrhea Genitourinary: denies: Discharge, Dysuria Breasts: denies: No Symptoms Reported Musculoskeletal: reports: Joint Pain, Joint Swelling Integumentary: reports: Erythema. denies: Lesions Neurological: denies: Seizure, Syncope Endocrine: denies: Unexplained Weight Gain, Unexplained Weight Loss Hematology/Lymphatic: denies: Easily Bruised, Excessive Bleeding Psychiatric: denies: Anxiety, Depression Physical Exam Vital Signs: Vital Signs Temperature 97.7 F 08/09/18 06:00 Pulse Rate 56 L 08/09/18 06:00 Respiratory Rate 18 08/09/18 06:00 Blood Pressure 92/56 L 08/09/18 06:00 O2 Sat by Pulse Oximetry (%) 100 08/08/18 18:16 Constitutional: Yes: Well Nourished, No Distress Eyes: Yes: Conjunctiva Clear, EOM Intact HENT: Yes: Atraumatic, Normocephalic Neck: Yes: Supple, Trachea Midline Cardiovascular: Yes: Regular Rate and Rhythm, S1, S2 Respiratory: Yes: Regular, CTA Bilaterally Gastrointestinal: Yes: Normal Bowel Sounds, Soft. No: Tenderness ...Rectal Exam: Yes: Deferred Renal/: No: CVA Tenderness - Left, CVA Tenderness - Right Musculoskeletal: No: Muscle Pain, Muscle Weakness Extremities: Yes: Erythema (left hand dorsal thumb. edema and limited ROM). No : Cool, Cyanosis Edema: LUE: 2+ Integumentary: No: Incision, Venous Stasis Changes Wound/Incision: Yes: Clean/Dry, Well Approximated, Dressing Dry and Intact Neurological: Yes: Alert, Oriented Psychiatric: Yes: Alert, Oriented Labs: CBC, BMP 08/09/18 07:00 08/09/18 07:00 Imaging - Results X-ray: Report Reviewed, Image Reviewed (no fracture dislocation or foreign body) MRI: Report Reviewed, Image Reviewed (soft tissue swelling) Problem List - Problems (1) Dog bite of left hand without complication Assessment/Plan: 28yo female with left hand dog bite with, no acute surgical intervention is indicated apprriate screening for communicable disease and inoculation Tentanus ID for IV and oral antibitics elevation of left arm above the heart will follow peripeghally Thank you for the opportunity to participate in the care of this patient. Code(s): S61.452A - OPEN BITE OF LEFT HAND, INITIAL ENCOUNTER; W54.0XXA - BITTEN BY DOG, INITIAL ENCOUNTER Qualifiers: Encounter type: initial encounter Qualified Code(s): S61.452A - Open bite of left hand, initial encounter; W54.0XXA - Bitten by dog, initial encounter (2) Dog bite of left hand Code(s): S61.452A - OPEN BITE OF LEFT HAND, INITIAL ENCOUNTER; W54.0XXA - BITTEN BY DOG, INITIAL ENCOUNTER Qualifiers: Encounter type: initial encounter Qualified Code(s): S61.452A - Open bite of left hand, initial encounter; W54.0XXA - Bitten by dog, initial encounter (3) Infection of left hand due to bite Code(s): S61.452A - OPEN BITE OF LEFT HAND, INITIAL ENCOUNTER; L08.9 - LOCAL INFECTION OF THE SKIN AND SUBCUTANEOUS TISSUE, UNSP Qualifiers: Encounter type: initial encounter Qualified Code(s): S61.452A - Open bite of left hand, initial encounter; L08.9 - Local infection of the skin and subcutaneous tissue, unspecified (4) Dog bite Code(s): W54.0XXA - BITTEN BY DOG, INITIAL ENCOUNTER Qualifiers: Encounter type: initial encounter Qualified Code(s): W54.0XXA - Bitten by dog, initial encounter (5) Infected dog bite Code(s): W54.0XXA - BITTEN BY DOG, INITIAL ENCOUNTER; L08.9 - LOCAL INFECTION OF THE SKIN AND SUBCUTANEOUS TISSUE, UNSP (6) Left arm cellulitis Code(s): L03.114 - CELLULITIS OF LEFT UPPER LIMB
--- NOTE | 2018-08-09 15:47 | PN ---
Teaching Attending Note Name of Resident: Julia Baer ATTENDING PHYSICIAN STATEMENT I saw and evaluated the patient. I reviewed the resident's note and discussed the case with the resident. I agree with the resident's findings and plan as documented. SUBJECTIVE: Swelling of left upper extremity is improving. able to move her left fingers. OBJECTIVE: Vital Signs Temperature 97.5 F L 08/09/18 14:40 Pulse Rate 71 08/09/18 14:40 Respiratory Rate 17 08/09/18 14:40 Blood Pressure 111/59 L 08/09/18 14:40 O2 Sat by Pulse Oximetry (%) 100 08/09/18 09:00 GENERAL: Awake, alert, and fully oriented, in no acute distress. HEAD: Normal with no signs of trauma. EYES: Pupils equal, round and reactive to light, extraocular movements intact, sclera anicteric, conjunctiva clear. EARS, NOSE, THROAT: Ears normal, oropharynx clear without exudates. Moist mucous membranes. NECK: Normal range of motion, supple without lymphadenopathy, JVD, or masses. LUNGS: Breath sounds equal, clear to auscultation bilaterally. No wheezes, and no crackles. No accessory muscle use. HEART: Regular rate and rhythm, normal S1 and S2 without murmur, rub or gallop. ABDOMEN: Soft, nontender, not distended, normoactive bowel sounds, no guarding, no rebound, no masses. EXTREMITIES: 2+ pulses, warm, well-perfused. positive for erythema and swelling of left wrist and hand improving, no abscess is noted. NEUROLOGICAL: Cranial nerves II-XII intact. Normal speech. Normal gait. PSYCHIATRIC: Cooperative. Good eye contact. Appropriate mood and affect. SKIN: Warm, dry, normal turgor, no rashes or lesions noted, normal capillary refill. CBCD WBC 5.2 K/mm3 (4.0-10.0) 08/09/18 07:00 RBC 3.94 M/mm3 (3.60-5.2) 08/09/18 07:00 Hgb 11.8 GM/dL (10.7-15.3) 08/09/18 07:00 Hct 35.3 % (32.4-45.2) 08/09/18 07:00 MCV 89.7 fl (80-96) 08/09/18 07:00 MCHC 33.5 g/dl (32.0-36.0) 08/09/18 07:00 RDW 12.8 % (11.6-15.6) 08/09/18 07:00 Plt Count 198 K/MM3 (134-434) 08/09/18 07:00 MPV 8.9 fl (7.5-11.1) 08/09/18 07:00 CMP Sodium 141 mmol/L (136-145) 08/09/18 07:00 Potassium 4.2 mmol/L (3.5-5.1) 08/09/18 07:00 Chloride 110 mmol/L (98-107) H 08/09/18 07:00 Carbon Dioxide 24 mmol/L (21-32) 08/09/18 07:00 Anion Gap 7 MMOL/L (8-16) L 08/09/18 07:00 BUN 10 mg/dL (7-18) 08/09/18 07:00 Creatinine 0.5 mg/dL (0.55-1.3) L 08/09/18 07:00 Creat Clearance w eGFR > 60 (>60) 08/09/18 07:00 Random Glucose 92 mg/dL (74-106) 08/09/18 07:00 Calcium 8.3 mg/dL (8.5-10.1) L 08/09/18 07:00 Total Bilirubin 0.4 mg/dL (0.2-1) 08/08/18 12:10 AST 13 U/L (15-37) L 08/08/18 12:10 ALT 14 U/L (13-61) 08/08/18 12:10 Alkaline Phosphatase 78 U/L (45-117) 08/08/18 12:10 Total Protein 7.2 g/dl (6.4-8.2) 08/08/18 12:10 Albumin 4.1 g/dl (3.4-5.0) 08/08/18 12:10 Current Medications Generic Name Dose Route Start Last Admin Trade Name Freq PRN Reason Stop Dose Admin Acetaminophen 650 mg 08/08/18 22:42 Tylenol - PO Q4H PRN FEVER Vancomycin HCl 1,000 mg in 250 mls @ 166.667 mls/hr 08/09/18 11:00 08/09/18 12:04 Vancomycin (Pre-Docked) IVPB 166.667 mls/hr Q12H LEOLA Administration Protocol Piperacillin Sod/Tazobactam 100 mls @ 200 mls/hr 08/09/18 10:30 08/09/18 11: 15 Sod 4.5 gm/ Dextrose IVPB 200 mls/hr Q8H-IV LEOLA Administration Protocol Naproxen 500 mg 08/09/18 10:30 08/09/18 12:38 Naprosyn - PO 08/10/18 22:01 500 mg BID LEOLA Administration Pantoprazole Sodium 40 mg 08/09/18 10:30 08/09/18 12:04 Protonix - PO 40 mg DAILY LEOLA Administration Home Medications Medication Instructions Recorded NK [No Known Home Medication] 08/08/18 Microbiology 08/08/18 11:03 Blood - Peripheral Venous Blood Culture - Preliminary NO GROWTH OBTAINED AFTER 48 HOURS, INCUBATION TO CONTINUE FOR 3 DAYS. 08/08/18 11:03 Blood - Peripheral Venous Blood Culture - Preliminary NO GROWTH OBTAINED AFTER 48 HOURS, INCUBATION TO CONTINUE FOR 3 DAYS. ASSESSMENT AND PLAN: Patient is a 28 year old female presenting with left hand and wrist cellulitis with swelling due to a dog bite. #Acute cellulitis of left hand and wrist due to dog bite, received IV antibiotic , tetanus shot, ID consulted, MRI result no osteo and abcess, just edema. cxr reviewed, Continue Zosyn IV and Vancomycin. DVt Px: early walking. low risk.
[2018-08-10] MEDS ORDERED: DEXTROSE 5%-WATER 100 ML IVPB ONE ×4 (01:55→22:30)
[2018-08-10] MEDS ORDERED: PIPERACILLIN/TAZOBACTAM 4.5 GM VIAL IVPB ONE ×4 (01:55→22:30)
[2018-08-10] MEDS: PIPERACILLIN/TAZOB 4.5 GM 4.5 GM in DEXTROSE 5%-WATER 100 ML IVPB SCH ×3 (02:03→17:43)
[2018-08-10] MEDS: PIPERACILLIN/TAZOB 3.375 GM 3.375 GM in DEXTROSE 5%-WATER - 50 ML IVPB SCH (02:04)
[2018-08-10] MEDS ORDERED: LORATADINE 10 MG TABLET PO ONE (02:41)
[2018-08-10] MEDS: VANCOMYCIN 1 GRAM (PRE-DOCKED) 1,000 MG/250 ML BAG IVPB SCH ×2 (10:31→22:39)
[2018-08-10] MEDS: PANTOPRAZOLE 40 MG TABLET (FP) PO SCH (10:34)
[2018-08-10] MEDS: NAPROXEN 500 MG TABLET (FP) PO SCH ×2 (10:38→21:26)
--- NOTE | 2018-08-10 11:55 | PN ---
Progress Note (short form) - Note Progress Note: much improved able to flex her fingers less erythema Vital Signs Period Temp Pulse Resp BP Sys/Morton Pulse Ox Last 24 Hr 97.4 F-98.3 F 44-71 17-20 103-116/59-68 100 cor-rrr lungs clear abd soft, nt ext some localized swelling at the bite site, rest of forearm much improved FROM of all the fingers CBC, BMP 08/09/18 07:00 08/09/18 07:00 Microbiology 08/08/18 11:03 Blood - Peripheral Venous Blood Culture - Preliminary NO GROWTH OBTAINED AFTER 24 HOURS, INCUBATION TO CONTINUE FOR 4 DAYS. 08/08/18 11:03 Blood - Peripheral Venous Blood Culture - Preliminary NO GROWTH OBTAINED AFTER 24 HOURS, INCUBATION TO CONTINUE FOR 4 DAYS. a/p cellulitis/soft tissue infection s/p dog bite continue antibiotics a small abscess forming at the bite site? awaiting surgical f/u Problem List - Problems (1) Infected dog bite Code(s): W54.0XXA - BITTEN BY DOG, INITIAL ENCOUNTER; L08.9 - LOCAL INFECTION OF THE SKIN AND SUBCUTANEOUS TISSUE, UNSP
--- NOTE | 2018-08-10 12:09 | PN ---
Progress Note (short form) - Note Progress Note: ORTHOPEDIC SURGERY PROGRESS NOTE Department of Orthopedic Surgery SUBJECTIVE No acute events overnight. No complaints currently. Denies chest pain, shortness of breath, or calf pain. No nausea or vomiting. Tolerating oral intake. Pain control improving. PHYSICAL EXAMINATION General: Alert, oriented, cooperative and no distress. Left Upper Extremity: Skin intact, erythema has decreased since yesterday. There is some increased swelling at the site of the dog bite, but no drainage or fluctuance at this time. Muscle mass equal and symmetric to contralateral side. No atrophy noted. No masses or effusions noted. No tenderness to palpation. Improved ROM of the thumb and wrist. M/R/U/MSK/AX motor intact; SILT distally; 2+ radial pulses; Cap refill brisk. Intake & Output 08/08/18 08/09/18 08/10/18 23:59 23:59 23:59 Intake Total 400 2480 400 Balance 400 2480 400 Intake: IVPB 800 100 Oral 400 1680 300 Other: Voiding Method Toilet Toilet # Unmeasured Voids Void 1 1 Bowel Movement No Weight 150 lb 154 lb 9 oz 154 lb Height 5 ft 3 in 5 ft 3 in 5 ft 3 in Body Mass Index (BMI) 26.5 27.3 27.3 Weight Measurement Method Built in [facility] Weight Measurement Method Est/Stated by Patient Active Medications Generic Name Dose Route Start Last Admin Trade Name Freq PRN Reason Stop Dose Admin Acetaminophen 650 mg 08/08/18 22:42 Tylenol - PO Q4H PRN FEVER Vancomycin HCl 1,000 mg in 250 mls @ 166.667 mls/hr 08/09/18 11:00 08/10/18 10:31 Vancomycin (Pre-Docked) IVPB 166.667 mls/hr Q12H LEOLA Administration Protocol Piperacillin Sod/Tazobactam 100 mls @ 200 mls/hr 08/09/18 10:30 08/10/18 10: 31 Sod 4.5 gm/ Dextrose IVPB 200 mls/hr Q8H-IV LEOLA Administration Protocol Naproxen 500 mg 08/09/18 10:30 08/10/18 10:38 Naprosyn - PO 08/10/18 22:01 500 mg BID LEOLA Administration Pantoprazole Sodium 40 mg 08/09/18 10:30 08/10/18 10:34 Protonix - PO 40 mg DAILY LEOLA Administration Vital Signs (last) Temp Pulse Resp BP Pulse Ox 97.4 F L 56 L 18 103/65 100 08/10/18 10:39 08/10/18 10:39 08/10/18 10:39 08/10/18 10:39 08/09/18 20:36 Laboratory 08/09/18 07:00 08/09/18 07:00 ASSESSMENT AND PLAN Ms. Rangel is a 28 year old female presenting with left hand and wrist cellulitis and swelling s/p dog bite - improved today. - Pain Control - Appreciate ID recommendations - Medical management appreciated (IV Abx) - Appreciate Hand Service consult - No orthopedic intervention at this time - Will follow closely All questions were answered. Nicola Gage, DO Orthopedic Surgery
--- NOTE | 2018-08-10 12:46 | PN ---
Physical Exam: SUBJECTIVE: Patient seen and examined. No acute events overnight. Offers no complaints. OBJECTIVE: Vital Signs Period Temp Pulse Resp BP Sys/Morton Pulse Ox Last 24 Hr 97.4 F-98.3 F 44-71 17-20 103-116/59-68 100 GENERAL: A/o x 3 HEAD: Normal with no signs of trauma. EYES: PERRLA, EOMI, sclera anicteric, conjunctiva clear. No lid lag. EARS, NOSE, THROAT:oropharynx clear without exudates. Moist mucous membranes. NECK: Normal range of motion, supple without lymphadenopathy, JVD, or masses. LUNGS: Breath sounds equal, clear to auscultation bilaterally. HEART: Regular rate and rhythm, normal S1 and S2 without murmur, rub or gallop. ABDOMEN: Soft, nontender, not distended, normoactive bowel sounds. LUE: +erythema (less than yesterday), swelling, tenderness of palm and anterior forearm. UPPER EXTREMITIES: 2+ pulses, warm, well-perfused LOWER EXTREMITIES: 2+ pulses, warm, well-perfused. No peripheral edema. NEUROLOGICAL: AAOx3, Cranial nerves II-XII intact. Normal speech. PSYCHIATRIC: Cooperative. Good eye contact. Appropriate mood and affect. Active Medications Generic Name Dose Route Start Last Admin Trade Name Freq PRN Reason Stop Dose Admin Acetaminophen 650 mg 08/08/18 22:42 Tylenol - PO Q4H PRN FEVER Vancomycin HCl 1,000 mg in 250 mls @ 166.667 mls/hr 08/09/18 11:00 08/10/18 10:31 Vancomycin (Pre-Docked) IVPB 166.667 mls/hr Q12H LEOLA Administration Protocol Piperacillin Sod/Tazobactam 100 mls @ 200 mls/hr 08/09/18 10:30 08/10/18 10: 31 Sod 4.5 gm/ Dextrose IVPB 200 mls/hr Q8H-IV LEOLA Administration Protocol Naproxen 500 mg 08/09/18 10:30 08/10/18 10:38 Naprosyn - PO 08/10/18 22:01 500 mg BID LEOLA Administration Pantoprazole Sodium 40 mg 08/09/18 10:30 08/10/18 10:34 Protonix - PO 40 mg DAILY LEOLA Administration ASSESSMENT/PLAN: Patient is a 28 year old female with no significant past medical history, presented with left hand wound, accompanied with pain, redness and swelling that started 3 days ago after a dog bite. #Cellulitis, 2/2 to dog bite -Left hand/forearm Xray done -LUE MRI: Soft tissue swelling at the palpable site in the superior and anterior aspect of the left wrist compatible with cellulitis or edema. No evidence of abscess collection. No evidence of osteomyelitis. No evidence of flexor tendons tear or retraction. No evidence of tenosynovitis. -Ortho (Dr. Gage) consulted. Recommendations appreciated. -pain management -Naproxen 500mg BID PRN for pain -Hand surgery (Dr. Whitaker) consulted. -ID (Dr. Perez) consulted. Recommendations appreciated. -Blood cultures - no growth for 24 hours -Tetanus vaccine given at the ED -Continue Vanc and Zosyn #FEN -Not on any standing fluids. -Encourage increased oral fluid intake -electrolytes wnl, routine bmp monitoring -regular diet #Prophylaxis -early ambulation #Disposition -full code -admit to med-surg Visit type - Emergency Visit Emergency Visit: Yes ED Registration Date: 08/08/18 Care time: The patient presented to the Emergency Department on the above date and was hospitalized for further evaluation of their emergent condition. - New Patient This patient is new to me today: Yes Date on this admission: 08/10/18 - Critical Care Critical Care patient: No
[2018-08-10] MEDS ORDERED: PT OWN MED DRAWER 7, Y5N ONE ×2 (16:42→20:43)
--- NOTE | 2018-08-10 18:02 | PN ---
Teaching Attending Note Name of Resident: Vinay Orourke ATTENDING PHYSICIAN STATEMENT I saw and evaluated the patient. I reviewed the resident's note and discussed the case with the resident. I agree with the resident's findings and plan as documented. SUBJECTIVE: Patient is comfortable with no acute distress, her left fingers reduced the swelling, able to move the fingers. OBJECTIVE: Vital Signs Temperature 98.2 F 08/10/18 14:55 Pulse Rate 58 L 08/10/18 14:55 Respiratory Rate 18 08/10/18 14:55 Blood Pressure 98/61 08/10/18 14:55 O2 Sat by Pulse Oximetry (%) 100 08/10/18 09:00 GENERAL: Awake, alert, and fully oriented, in no acute distress. HEAD: Normal with no signs of trauma. EYES: Pupils equal, round and reactive to light, extraocular movements intact, sclera anicteric, conjunctiva clear. EARS, NOSE, THROAT: Ears normal, oropharynx clear without exudates. Moist mucous membranes. NECK: Normal range of motion, supple without lymphadenopathy, JVD, or masses. LUNGS: Breath sounds equal, clear to auscultation bilaterally. No wheezes, and no crackles. No accessory muscle use. HEART: Regular rate and rhythm, normal S1 and S2 without murmur, rub or gallop. ABDOMEN: Soft, nontender, not distended, normoactive bowel sounds, no guarding, no rebound, no masses. EXTREMITIES: 2+ pulses, warm, well-perfused. positive for erythema and swelling of left wrist and hand improving, no abscess is noted. NEUROLOGICAL: Cranial nerves II-XII intact. Normal speech. Normal gait. PSYCHIATRIC: Cooperative. Good eye contact. Appropriate mood and affect. SKIN: Warm, dry, normal turgor, no rashes or lesions noted, normal capillary refill. CBCD WBC 5.2 K/mm3 (4.0-10.0) 08/09/18 07:00 RBC 3.94 M/mm3 (3.60-5.2) 08/09/18 07:00 Hgb 11.8 GM/dL (10.7-15.3) 08/09/18 07:00 Hct 35.3 % (32.4-45.2) 08/09/18 07:00 MCV 89.7 fl (80-96) 08/09/18 07:00 MCHC 33.5 g/dl (32.0-36.0) 08/09/18 07:00 RDW 12.8 % (11.6-15.6) 08/09/18 07:00 Plt Count 198 K/MM3 (134-434) 08/09/18 07:00 MPV 8.9 fl (7.5-11.1) 08/09/18 07:00 CMP Sodium 141 mmol/L (136-145) 08/09/18 07:00 Potassium 4.2 mmol/L (3.5-5.1) 08/09/18 07:00 Chloride 110 mmol/L (98-107) H 08/09/18 07:00 Carbon Dioxide 24 mmol/L (21-32) 08/09/18 07:00 Anion Gap 7 MMOL/L (8-16) L 08/09/18 07:00 BUN 10 mg/dL (7-18) 08/09/18 07:00 Creatinine 0.5 mg/dL (0.55-1.3) L 08/09/18 07:00 Creat Clearance w eGFR > 60 (>60) 08/09/18 07:00 Random Glucose 92 mg/dL (74-106) 08/09/18 07:00 Calcium 8.3 mg/dL (8.5-10.1) L 08/09/18 07:00 Total Bilirubin 0.4 mg/dL (0.2-1) 08/08/18 12:10 AST 13 U/L (15-37) L 08/08/18 12:10 ALT 14 U/L (13-61) 08/08/18 12:10 Alkaline Phosphatase 78 U/L (45-117) 08/08/18 12:10 Total Protein 7.2 g/dl (6.4-8.2) 08/08/18 12:10 Albumin 4.1 g/dl (3.4-5.0) 08/08/18 12:10 Current Medications Generic Name Dose Route Start Last Admin Trade Name Freq PRN Reason Stop Dose Admin Acetaminophen 650 mg 08/08/18 22:42 Tylenol - PO Q4H PRN FEVER Vancomycin HCl 1,000 mg in 250 mls @ 166.667 mls/hr 08/09/18 11:00 08/10/18 10:31 Vancomycin (Pre-Docked) IVPB 166.667 mls/hr Q12H LEOLA Administration Protocol Piperacillin Sod/Tazobactam 100 mls @ 200 mls/hr 08/09/18 10:30 08/10/18 17: 43 Sod 4.5 gm/ Dextrose IVPB 200 mls/hr Q8H-IV LEOLA Administration Protocol Naproxen 500 mg 08/09/18 10:30 08/10/18 10:38 Naprosyn - PO 08/10/18 22:01 500 mg BID LEOLA Administration Pantoprazole Sodium 40 mg 08/09/18 10:30 08/10/18 10:34 Protonix - PO 40 mg DAILY LEOLA Administration Home Medications Medication Instructions Recorded NK [No Known Home Medication] 08/08/18 08/08/18 11:03 Blood - Peripheral Venous Blood Culture - Preliminary NO GROWTH OBTAINED AFTER 48 HOURS, INCUBATION TO CONTINUE FOR 3 DAYS. 08/08/18 11:03 Blood - Peripheral Venous Blood Culture - Preliminary NO GROWTH OBTAINED AFTER 48 HOURS, INCUBATION TO CONTINUE FOR 3 DAYS. ASSESSMENT AND PLAN: Patient is a 28 year old female presenting with left hand and wrist cellulitis with swelling due to a dog bite. #Acute cellulitis with no abscess of left hand and wrist due to dog bite, received IV antibiotic, tetanus shot, ID consulted, MRI result no osteo and abcess, just edema. cxr reviewed, Continue Zosyn IV and Vancomycin. DVt Px: early walking. low risk.
[2018-08-11] MEDS: PIPERACILLIN/TAZOB 4.5 GM 4.5 GM in DEXTROSE 5%-WATER 100 ML IVPB SCH ×3 (02:24→17:38)
--- NOTE | 2018-08-11 09:48 | PN ---
Progress Note (short form) - Note Progress Note: ORTHOPEDIC SURGERY PROGRESS NOTE Department of Orthopedic Surgery SUBJECTIVE No acute events overnight. No complaints currently. Denies chest pain, shortness of breath, or calf pain. No nausea or vomiting. Tolerating oral intake. Pain controlled. PHYSICAL EXAMINATION General: Alert, oriented, cooperative and no distress. Left Upper Extremity: Skin intact, erythema has decreased since yesterday. Some drainage was expressed by medical team, and cultured. There is no drainage or fluctuance at this time. Muscle mass equal and symmetric to contralateral side. No atrophy noted. No masses or effusions noted. No tenderness to palpation. Improved ROM of the thumb and wrist. M/R/U/MSK/AX motor intact; SILT distally; 2 + radial pulses; Cap refill brisk. Intake & Output 08/09/18 08/10/18 08/11/18 23:59 23:59 23:59 Intake Total 2480 1700 480 Balance 2480 1700 480 Intake: IVPB 800 700 100 Oral 1680 1000 380 Other: Voiding Method Toilet Toilet Toilet # Unmeasured Voids Void 1 1 1 Bowel Movement No No Weight 154 lb 9 oz 154 lb Height 5 ft 3 in 5 ft 3 in Body Mass Index (BMI) 27.3 27.3 [facility] Measurement Method [facility] Active Medications Generic Name Dose Route Start Last Admin Trade Name Freq PRN Reason Stop Dose Admin Acetaminophen 650 mg 08/08/18 22:42 Tylenol - PO Q4H PRN FEVER Vancomycin HCl 1,000 mg in 250 mls @ 166.667 mls/hr 08/09/18 11:00 08/10/18 22:39 Vancomycin (Pre-Docked) IVPB 166.667 mls/hr Q12H LEOLA Administration Protocol Piperacillin Sod/Tazobactam 100 mls @ 200 mls/hr 08/09/18 10:30 08/11/18 02: 24 Sod 4.5 gm/ Dextrose IVPB 200 mls/hr Q8H-IV LEOLA Administration Protocol Pantoprazole Sodium 40 mg 08/09/18 10:30 08/10/18 10:34 Protonix - PO 40 mg DAILY LEOLA Administration Vital Signs (last) Temp Pulse Resp BP Pulse Ox 97.5 F L 57 L 18 99/51 L 100 08/11/18 06:00 08/11/18 06:00 08/11/18 06:00 08/11/18 06:00 08/10/18 21:00 Laboratory 08/09/18 07:00 08/09/18 07:00 ASSESSMENT AND PLAN Ms. Rangel is a 28 year old female presenting with left hand and wrist cellulitis and swelling s/p dog bite - improved ROM and erythema further today. - Pain Control - Appreciate ID recommendations; Follow up cultures taken from wrist wound. - Medical management appreciated (IV Abx) - Appreciate Hand Service consult - No orthopedic intervention at this time - Will follow closely - All questions were answered. - Patient may follow up in our office in 1 week. Call [phone] for an appointment. Thank you for involving us in the care of your patient. Nicola Gage, DO Orthopedic Surgery
[2018-08-11] MEDS ORDERED: DEXTROSE 5%-WATER 100 ML IVPB ONE ×3 (09:57→23:41)
[2018-08-11] MEDS ORDERED: PIPERACILLIN/TAZOBACTAM 4.5 GM VIAL IVPB ONE ×3 (09:57→23:41)
[2018-08-11] MEDS: PANTOPRAZOLE 40 MG TABLET (FP) PO SCH (09:59)
--- NOTE | 2018-08-11 10:08 | PN ---
Progress Note (short form) - Note Progress Note: arm continues to improve small amount of purulent drainage from bite site per patient- expressed and cultured this am no complaints Vital Signs Period Temp Pulse Resp BP Sys/Morton Pulse Ox Last 24 Hr 97.4 F-98.2 F 56-58 -18 98-104/51-65 100 cor-rrr lungs clear abd soft,nt ext less erythema, small mount of purulence at bite site, FROM of hand and fingers CBC, BMP 08/09/18 07:00 08/09/18 07:00 Microbiology 08/08/18 11:03 Blood - Peripheral Venous Blood Culture - Preliminary NO GROWTH OBTAINED AFTER 48 HOURS, INCUBATION TO CONTINUE FOR 3 DAYS. 08/08/18 11:03 Blood - Peripheral Venous Blood Culture - Preliminary NO GROWTH OBTAINED AFTER 48 HOURS, INCUBATION TO CONTINUE FOR 3 DAYS. MRI-no osteo a/p cellulitis/soft tissue infection s/p dog bite-improved continue antibiotics f/u cultures Problem List - Problems (1) Infected dog bite Code(s): W54.0XXA - BITTEN BY DOG, INITIAL ENCOUNTER; L08.9 - LOCAL INFECTION OF THE SKIN AND SUBCUTANEOUS TISSUE, UNSP
[2018-08-11] MEDS: VANCOMYCIN 1 GRAM (PRE-DOCKED) 1,000 MG/250 ML BAG IVPB SCH ×2 (11:17→22:30)
--- NOTE | 2018-08-11 13:39 | PN ---
Physical Exam: SUBJECTIVE: Patient seen and examined at bedside this morning. No acute events overnight. Patient reported pus draining from the bite wound on the anterior wrist when expressed. Sample taken for culture. Redness, swelling and pain has decreased. Patient is now able to flex and extend her fingers fully without experiencing pain. She denies fever, chills, nausea, vomiting, SOB, palpitations , abdominal pain, diarrhea, urinary symptoms. Patient reports vaginal itching that started 2 days ago. Denies vaginal pain, discharge. OBJECTIVE: Vital Signs Period Temp Pulse Resp BP Sys/Morton Pulse Ox Last 24 Hr 97.5 F-98.3 F 56-58 18-20 98-104/51-64 100 GENERAL: Awake, alert, and fully oriented, in no acute distress. HEAD: Normal with no signs of trauma. EYES: PERRLA, EOMI, sclera anicteric, conjunctiva clear. No lid lag. EARS, NOSE, THROAT: Ears normal, nares patent, oropharynx clear without exudates. Moist mucous membranes. NECK: Normal range of motion, supple without lymphadenopathy, JVD, or masses. LUNGS: Breath sounds equal, clear to auscultation bilaterally. HEART: Regular rate and rhythm, normal S1 and S2 without murmur, rub or gallop. ABDOMEN: Soft, nontender, not distended, normoactive bowel sounds. LUE: +decreased erythema, swelling, tenderness of palm and anterior forearm. + draining wound in the anterior wrist. Able to fully flex, extend, adduct and abduct her fingers; able to flex and extend her wrists without experiencing any pain. UPPER EXTREMITIES: 2+ pulses, warm, well-perfused. No cyanosis. LOWER EXTREMITIES: 2+ pulses, warm, well-perfused. No calf tenderness. No peripheral edema. NEUROLOGICAL: AAOx3, Cranial nerves II-XII intact. Normal speech. Normal gait. PSYCHIATRIC: Cooperative. Good eye contact. Appropriate mood and affect. SKIN: Warm, dry, normal turgor, no rashes or lesions noted, normal capillary refill. Vaginal exam: Vulvar opening erythematous with minimal whitish discharge. Laboratory Results - last 24 hr 08/11/18 09:15 Vancomycin Pre-Dose 11.6 L Active Medications Generic Name Dose Route Start Last Admin Trade Name Freq PRN Reason Stop Dose Admin Acetaminophen 650 mg 08/08/18 22:42 Tylenol - PO Q4H PRN FEVER Vancomycin HCl 1,000 mg in 250 mls @ 166.667 mls/hr 08/09/18 11:00 08/11/18 11:17 Vancomycin (Pre-Docked) IVPB 166.667 mls/hr Q12H LEOLA Administration Protocol Piperacillin Sod/Tazobactam 100 mls @ 200 mls/hr 08/09/18 10:30 08/11/18 09: 59 Sod 4.5 gm/ Dextrose IVPB 200 mls/hr Q8H-IV LEOLA Administration Protocol Pantoprazole Sodium 40 mg 08/09/18 10:30 08/11/18 09:59 Protonix - PO 40 mg DAILY LEOLA Administration ASSESSMENT/PLAN: Patient is a 28 year old female with no significant past medical history, presented with left hand wound, accompanied with pain, redness and swelling that started 2 days ago after a dog bite. #Cellulitis, 2/2 to dog bite -Left hand/forearm Xray done -LUE MRI: Soft tissue swelling at the palpable site in the superior and anterior aspect of the left wrist compatible with cellulitis or edema. No evidence of abscess collection. No evidence of osteomyelitis. No evidence of flexor tendons tear or retraction. No evidence of tenosynovitis. -Ortho (Dr. Gage) consulted. Recommendations appreciated. -Hand surgery (Dr. Whitaker) consulted. -ID (Dr. Perez) consulted. Recommendations appreciated. -Blood cultures - no growth after 48 hours -Able to express purulent discharge from the bite wound. Wound culture sent. -Tetanus vaccine given at the ED -IV Vancomycin 1gm and IV Zosyn 4.5 gm q8h -Tylenol PRN for pain -Bacid 1 tab daily -Bacitracin and wound care #FEN -Not on any standing fluids. -Encourage increased oral fluid intake -electrolytes wnl, routine bmp monitoring -regular diet #Prophylaxis -early ambulation #Disposition -full code -admit to med-surg Visit type - Emergency Visit Emergency Visit: Yes ED Registration Date: 08/08/18 Care time: The patient presented to the Emergency Department on the above date and was hospitalized for further evaluation of their emergent condition. - New Patient This patient is new to me today: No - Critical Care Critical Care patient: No
--- NOTE | 2018-08-11 17:14 | PN ---
Progress Note, Physician Chief Complaint: left hand dog bite History of Present Illness: 28 yo RHD female no significant PMH presented with left hand wound, accompanied with pain, redness and swelling that started 2 days ago after a dog bite. 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 Patient reported the dog is complete with vaccinations. Few hours after the incident, patient noted pain, redness and swelling, spreading proximally to the forearm and distally to the palm. She took Cefalexin 1g that night. Yesterday, she noted worsening of the symptoms, as well as experiencing chills, and continued to take Cefalexin and Naproxen for pain. Today, patient came to the ED as the pain, swelling and redness has worsened. She also reported because of the pain, she can not close her left hand and form a fist, nor extend it fully. Patient denies fever, headache, dizziness, nausea, vomiting, chest pain, SOB, palpitations, abdominal pain, diarrhea, constipation or urinary symptoms. - Current Medication List Current Medications: Active Medications Acetaminophen (Tylenol -) 650 mg PO Q4H PRN PRN Reason: FEVER Clotrimazole (Gyne-Lotrimin -) 1 applic VG HS LEOLA Vancomycin HCl (Vancomycin (Pre-Docked)) 1,000 mg in 250 mls @ 166.667 mls/hr IVPB Q12H LEOLA; Protocol Last Admin: 08/11/18 11:17 Dose: 166.667 mls/hr Piperacillin Sod/Tazobactam (Sod 4.5 gm/ Dextrose) 100 mls @ 200 mls/hr IVPB Q8H-IV LEOLA; Protocol Last Admin: 08/11/18 09:59 Dose: 200 mls/hr Pantoprazole Sodium (Protonix -) 40 mg PO DAILY LEOLA Last Admin: 08/11/18 09:59 Dose: 40 mg - Objective Vital Signs: Vital Signs Temperature 98.1 F 08/11/18 14:45 Pulse Rate 54 L 08/11/18 14:45 Respiratory Rate 18 08/11/18 14:45 Blood Pressure 107/70 08/11/18 14:45 O2 Sat by Pulse Oximetry (%) 100 08/11/18 09:00 Constitutional: Yes: Well Nourished, No Distress, Calm Eyes: Yes: Conjunctiva Clear, EOM Intact HENT: Yes: Atraumatic, Normocephalic Neck: Yes: Supple, Trachea Midline Cardiovascular: Yes: Regular Rate and Rhythm, S1, S2 Respiratory: Yes: Regular, CTA Bilaterally Gastrointestinal: Yes: Normal Bowel Sounds, Soft. No: Tenderness ...Rectal Exam: Yes: Deferred Genitourinary: No: CVA Tenderness - Left, CVA Tenderness - Right Breast(s): No: Discharge from Nipple, Skin Changes Musculoskeletal: No: Muscle Pain, Muscle Weakness Extremities: Yes: Erythema (erythema improving and motion improving). No: Cool , Cyanosis Edema: Yes Edema: LUE: 1+ Peripheral Pulses WNL: Yes Peripheral Pulses: Left Radial: 2+, Right Radial: 2+, Left Doralis Pedis: 2+, Right Dorsalis Pedis: 2+, Left Femoral: 2+, Right Femoral: 2+ Integumentary: No: Jaundice, Rash Wound/Incision: Yes: Clean/Dry, Dressing Dry and Intact, Reddened. No: Draining , Bleeding Neurological: Yes: Alert, Oriented Psychiatric: Yes: Alert, Oriented Labs: CBC, BMP 08/09/18 07:00 08/09/18 07:00 Problem List - Problems (1) Dog bite of left hand without complication Assessment/Plan: 28yo female with left hand dog bite with, no acute surgical intervention is indicated, erythema improving and motion improved apprriate screening for communicable disease and inoculation Tentanus ID for IV and oral antibitics elevation of left arm above the heart will follow peripherally discharge at the discretion of the primary team on oral antibiotics Thank you for the opportunity to participate in the care of this patient. Code(s): S61.452A - OPEN BITE OF LEFT HAND, INITIAL ENCOUNTER; W54.0XXA - BITTEN BY DOG, INITIAL ENCOUNTER Qualifiers: Encounter type: initial encounter Qualified Code(s): S61.452A - Open bite of left hand, initial encounter; W54.0XXA - Bitten by dog, initial encounter (2) Dog bite of left hand Code(s): S61.452A - OPEN BITE OF LEFT HAND, INITIAL ENCOUNTER; W54.0XXA - BITTEN BY DOG, INITIAL ENCOUNTER Qualifiers: Encounter type: initial encounter Qualified Code(s): S61.452A - Open bite of left hand, initial encounter; W54.0XXA - Bitten by dog, initial encounter (3) Infected dog bite Code(s): W54.0XXA - BITTEN BY DOG, INITIAL ENCOUNTER; L08.9 - LOCAL INFECTION OF THE SKIN AND SUBCUTANEOUS TISSUE, UNSP (4) Infection of left hand due to bite Code(s): S61.452A - OPEN BITE OF LEFT HAND, INITIAL ENCOUNTER; L08.9 - LOCAL INFECTION OF THE SKIN AND SUBCUTANEOUS TISSUE, UNSP Qualifiers: Encounter type: initial encounter Qualified Code(s): S61.452A - Open bite of left hand, initial encounter; L08.9 - Local infection of the skin and subcutaneous tissue, unspecified (5) Left arm cellulitis Code(s): L03.114 - CELLULITIS OF LEFT UPPER LIMB
[2018-08-11] MEDS: BACITRACIN 15 GM TUBE TOPICAL OINTMENT TP SCH (17:38)
--- NOTE | 2018-08-11 18:32 | PN ---
Teaching Attending Note Name of Resident: Julia Baer ATTENDING PHYSICIAN STATEMENT I saw and evaluated the patient. I reviewed the resident's note and discussed the case with the resident. I agree with the resident's findings and plan as documented. SUBJECTIVE: Patient is feeling better with no acute distress, positive for discharge at her left wrist. as per patient has a vaginal discharge as well. OBJECTIVE: Vital Signs Temperature 98.1 F 08/11/18 14:45 Pulse Rate 54 L 08/11/18 14:45 Respiratory Rate 18 08/11/18 14:45 Blood Pressure 107/70 08/11/18 14:45 O2 Sat by Pulse Oximetry (%) 100 08/11/18 09:00 GENERAL: Awake, alert, and fully oriented, in no acute distress. HEAD: Normal with no signs of trauma. EYES: Pupils equal, round and reactive to light, extraocular movements intact, sclera anicteric, conjunctiva clear. EARS, NOSE, THROAT: Ears normal, oropharynx clear without exudates. Moist mucous membranes. NECK: Normal range of motion, supple without lymphadenopathy, JVD, or masses. LUNGS: Breath sounds equal, clear to auscultation bilaterally. No wheezes, and no crackles. No accessory muscle use. HEART: Regular rate and rhythm, normal S1 and S2 without murmur, rub or gallop. ABDOMEN: Soft, nontender, not distended, normoactive bowel sounds, no guarding, no rebound, no masses. EXTREMITIES: 2+ pulses, warm, well-perfused. positive for erythema and swelling of left wrist and hand improving, positive for discharge from the wrist. NEUROLOGICAL: Cranial nerves II-XII intact. Normal speech. Normal gait. PSYCHIATRIC: Cooperative. Good eye contact. Appropriate mood and affect. SKIN: Warm, dry, normal turgor, no rashes or lesions noted, normal capillary refill. CBCD WBC 5.2 K/mm3 (4.0-10.0) 08/09/18 07:00 RBC 3.94 M/mm3 (3.60-5.2) 08/09/18 07:00 Hgb 11.8 GM/dL (10.7-15.3) 08/09/18 07:00 Hct 35.3 % (32.4-45.2) 08/09/18 07:00 MCV 89.7 fl (80-96) 08/09/18 07:00 MCHC 33.5 g/dl (32.0-36.0) 08/09/18 07:00 RDW 12.8 % (11.6-15.6) 08/09/18 07:00 Plt Count 198 K/MM3 (134-434) 08/09/18 07:00 MPV 8.9 fl (7.5-11.1) 08/09/18 07:00 CMP Sodium 141 mmol/L (136-145) 08/09/18 07:00 Potassium 4.2 mmol/L (3.5-5.1) 08/09/18 07:00 Chloride 110 mmol/L (98-107) H 08/09/18 07:00 Carbon Dioxide 24 mmol/L (21-32) 08/09/18 07:00 Anion Gap 7 MMOL/L (8-16) L 08/09/18 07:00 BUN 10 mg/dL (7-18) 08/09/18 07:00 Creatinine 0.5 mg/dL (0.55-1.3) L 08/09/18 07:00 Creat Clearance w eGFR > 60 (>60) 08/09/18 07:00 Random Glucose 92 mg/dL (74-106) 08/09/18 07:00 Calcium 8.3 mg/dL (8.5-10.1) L 08/09/18 07:00 Total Bilirubin 0.4 mg/dL (0.2-1) 08/08/18 12:10 AST 13 U/L (15-37) L 08/08/18 12:10 ALT 14 U/L (13-61) 08/08/18 12:10 Alkaline Phosphatase 78 U/L (45-117) 08/08/18 12:10 Total Protein 7.2 g/dl (6.4-8.2) 08/08/18 12:10 Albumin 4.1 g/dl (3.4-5.0) 08/08/18 12:10 Current Medications Generic Name Dose Route Start Last Admin Trade Name Freq PRN Reason Stop Dose Admin Acetaminophen 650 mg 08/08/18 22:42 Tylenol - PO Q4H PRN FEVER Bacitracin 1 applic 08/11/18 17:15 08/11/18 17:38 Bacitracin - TP 1 applic DAILY LEOLA Administration Clotrimazole 1 applic 08/11/18 22:00 Gyne-Lotrimin - VG HS LEOLA Vancomycin HCl 1,000 mg in 250 mls @ 166.667 mls/hr 08/09/18 11:00 08/11/18 11:17 Vancomycin (Pre-Docked) IVPB 166.667 mls/hr Q12H LEOLA Administration Protocol Piperacillin Sod/Tazobactam 100 mls @ 200 mls/hr 08/09/18 10:30 08/11/18 17: 38 Sod 4.5 gm/ Dextrose IVPB 200 mls/hr Q8H-IV LEOLA Administration Protocol Lactobacillus Acidophilus 1 tab 08/11/18 22:00 Bacid - PO BID LEOLA Pantoprazole Sodium 40 mg 08/09/18 10:30 08/11/18 09:59 Protonix - PO 40 mg DAILY LEOLA Administration Hepatic Panel Total Bilirubin 0.4 mg/dL (0.2-1) 08/08/18 12:10 AST 13 U/L (15-37) L 08/08/18 12:10 ALT 14 U/L (13-61) 08/08/18 12:10 Alkaline Phosphatase 78 U/L (45-117) 08/08/18 12:10 Albumin 4.1 g/dl (3.4-5.0) 08/08/18 12:10 ASSESSMENT AND PLAN: Patient is a 28 year old female presenting with left hand and wrist cellulitis with swelling due to a dog bite. #Acute cellulitis of her left hand and arm due to a dog bite with positive discharge of left hand, send for Cx, please follow up, On zosyn and vancomycin IV, tetanus shot, ID on the case. MRI result no osteo and abcess, just edema. # Vaginal yeast: vaginal lotrimin cream daily qhs ordered and ordered Bacid. DVt Px: early walking. low risk.
[2018-08-11] MEDS ORDERED: PT OWN MED DRAWER 7, Y5N ONE (18:53)
[2018-08-11] MEDS: LACTOBACILLUS ACIDOPHILUS 1 TABLET PO SCH (21:06)
[2018-08-11] MEDS ORDERED: CLOTRIMAZOLE 1% VAGINAL CREAM WITH APPLICATOR 45 GM TUBE VG SCH (22:00)
[2018-08-12] MEDS: PIPERACILLIN/TAZOB 4.5 GM 4.5 GM in DEXTROSE 5%-WATER 100 ML IVPB SCH ×2 (01:17→09:58)
--- NOTE | 2018-08-12 08:18 | PN ---
Progress Note (short form) - Note Progress Note: ORTHOPEDIC SURGERY PROGRESS NOTE Department of Orthopedic Surgery SUBJECTIVE No acute events overnight. No complaints currently. Denies chest pain, shortness of breath, or calf pain. No nausea or vomiting. Tolerating oral intake. Pain controlled. PHYSICAL EXAMINATION General: Alert, oriented, cooperative and no distress. Left Upper Extremity: Skin intact, erythema has decreased further since yesterday. There is no drainage or fluctuance at this time. Muscle mass equal and symmetric to contralateral side. No atrophy noted. No masses or effusions noted. No tenderness to palpation. Further improved ROM of the thumb and wrist. M/R/U/MSK/AX motor intact; SILT distally; 2+ radial pulses; Cap refill brisk. Intake & Output 08/10/18 08/11/18 08/12/18 23:59 23:59 23:59 Intake Total 1700 1460 100 Balance 1700 1460 100 Intake: IVPB 700 700 100 Oral 1000 760 Other: Voiding Method Toilet Toilet # Unmeasured Voids Void 1 1 3 Bowel Movement Yes Weight 154 lb Height 5 ft 3 in Body Mass Index (BMI) 27.3 Active Medications Generic Name Dose Route Start Last Admin Trade Name Freq PRN Reason Stop Dose Admin Acetaminophen 650 mg 08/08/18 22:42 Tylenol - PO Q4H PRN FEVER Bacitracin 1 applic 08/11/18 17:15 08/11/18 17:38 Bacitracin - TP 1 applic DAILY LEOLA Administration Clotrimazole 1 applic 08/11/18 22:00 08/11/18 21:06 Gyne-Lotrimin - VG 1 applic HS LEOLA Administration Vancomycin HCl 1,000 mg in 250 mls @ 166.667 mls/hr 08/09/18 11:00 08/11/18 22:30 Vancomycin (Pre-Docked) IVPB 166.667 mls/hr Q12H LEOLA Administration Protocol Piperacillin Sod/Tazobactam 100 mls @ 200 mls/hr 08/09/18 10:30 08/12/18 01: 17 Sod 4.5 gm/ Dextrose IVPB 200 mls/hr Q8H-IV LEOLA Administration Protocol Lactobacillus Acidophilus 1 tab 08/11/18 22:00 08/11/18 21:06 Bacid - PO 1 tab BID LEOLA Administration Pantoprazole Sodium 40 mg 08/09/18 10:30 12/26/18 09:59 Protonix - PO 40 mg DAILY LEOLA Administration Vital Signs (last) Temp Pulse Resp BP Pulse Ox 97.9 F 66 18 99/60 100 08/12/18 06:27 08/12/18 06:27 08/12/18 06:27 08/12/18 06:27 08/11/18 21:00 Laboratory 08/09/18 07:00 08/09/18 07:00 ASSESSMENT AND PLAN Ms. Rangel is a 28 year old female presenting with left hand and wrist cellulitis and swelling s/p dog bite - improved ROM and erythema further today. - Pain Control - Appreciate ID recommendations; Gram stain no organisms seen. F/U Cultures. - Medical management appreciated (IV Abx) - Appreciate Hand Service consult - No orthopedic intervention at this time - All questions were answered. - Patient may follow up in our office in 1 week. Call [phone] for an appointment. Thank you for involving us in the care of your patient. Nicola Gage, DO Orthopedic Surgery
[2018-08-12] MEDS ORDERED: PIPERACILLIN/TAZOBACTAM 4.5 GM VIAL IVPB ONE (09:16)
[2018-08-12] MEDS ORDERED: DEXTROSE 5%-WATER 100 ML IVPB ONE (09:17)
[2018-08-12] MEDS: PANTOPRAZOLE 40 MG TABLET (FP) PO SCH (09:58)
[2018-08-12] MEDS: LACTOBACILLUS ACIDOPHILUS 1 TABLET PO SCH (09:58)
[2018-08-12] MEDS: BACITRACIN 15 GM TUBE TOPICAL OINTMENT TP SCH (09:59)
[2018-08-12 10:20] LABS: BASO % 0.5 % (0-2.0); EOS % 3.2 % (0-4.5); HEMATOCRIT 39.7 % (32.4-45.2); LYMPH % 16.4 % (8-40); MCH 29.5 pg (25.7-33.7); MCHC 32.7 g/dl (32.0-36.0); MEAN CELL VOLUME 90.4 fl (80-96); MEAN PLT VOLUME 8.2 fl (7.5-11.1); MONO % 6.9 % (3.8-10.2); PLATELET COUNT 284 K/MM3 (134-434); RBC 4.39 M/mm3 (3.60-5.2); RDW 13.1 % (11.6-15.6); WHITE BLOOD COUNT 7.3 K/mm3 (4.0-10.0)
[2018-08-12] MEDS: VANCOMYCIN 1 GRAM (PRE-DOCKED) 1,000 MG/250 ML BAG IVPB SCH (10:45)
[2018-08-12 11:02] LABS: ANION GAP 6 MMOL/L (8-16); BLOOD UREA NITROGEN 11 mg/dL (7-18); CALCIUM 8.5 mg/dL (8.5-10.1); CHLORIDE 108 mmol/L (98-107); CO2 25 mmol/L (21-32); CREATININE 0.7 mg/dL (0.55-1.3); GLUCOSE,RANDOM 85 mg/dL (74-106); POTASSIUM 4.5 mmol/L (3.5-5.1); SODIUM 139 mmol/L (136-145)
[2018-08-12] MEDS ORDERED: FLUCONAZOLE 150 MG TABLET PO ONE (11:54)
[2018-08-12] MEDS ORDERED: PT OWN MED DRAWER 7, Y5N ONE ×2 (12:48→13:36)
--- NOTE | 2018-08-12 14:02 | PN ---
Progress Note (short form) - Note Progress Note: arm continues to improve no drainage Vital Signs Period Temp Pulse Resp BP Sys/Morton Pulse Ox Last 24 Hr 97.9 F-98.1 F 54-66 18-18 99-107/60-71 100-100 arm with less erythema, wound is open, no drainage CBC, BMP 08/12/18 09:45 08/12/18 09:45 Microbiology 08/08/18 11:03 Blood - Peripheral Venous Blood Culture - Preliminary NO GROWTH OBTAINED AFTER 96 HOURS, INCUBATION TO CONTINUE FOR 1 DAYS. 08/08/18 11:03 Blood - Peripheral Venous Blood Culture - Preliminary NO GROWTH OBTAINED AFTER 96 HOURS, INCUBATION TO CONTINUE FOR 1 DAYS. 08/11/18 08:00 Arm - Left Forearm Gram Stain - Final 08/11/18 08:00 Arm - Left Forearm Wound Culture - Preliminary NO GROWTH OBTAINED AFTER 24 HOURS INCUBATION, REINCUBATED. MRI-no osteo a/p cellulitis/soft tissue infection s/p dog bite-improved suspect wound culture may be sterile as she was on antibiotics day #4 antibiotics can switch to po augmentin 875 mg po bid and bactrim DS one po bid for another 7 days she should be seen in f/u before she finishes antiiboitcs next week to see if duration needs to be longer suggest she f/u in resident clinic with a resident who has seen her in the hospital f/u cultures in am Problem List - Problems (1) Infected dog bite Code(s): W54.0XXA - BITTEN BY DOG, INITIAL ENCOUNTER; L08.9 - LOCAL INFECTION OF THE SKIN AND SUBCUTANEOUS TISSUE, UNSP
--- NOTE | 2018-08-12 14:15 | PN ---
Progress Note, Physician Chief Complaint: left hand dog bite History of Present Illness: 28 yo RHD female no significant PMH presented with left hand wound, accompanied with pain, redness and swelling that started 2 days ago after a dog bite. 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 Patient reported the dog is complete with vaccinations. Few hours after the incident, patient noted pain, redness and swelling, spreading proximally to the forearm and distally to the palm. She took Cefalexin 1g that night. Yesterday, she noted worsening of the symptoms, as well as experiencing chills, and continued to take Cefalexin and Naproxen for pain. Today, patient came to the ED as the pain, swelling and redness has worsened. She also reported because of the pain, she can not close her left hand and form a fist, nor extend it fully. Patient denies fever, headache, dizziness, nausea, vomiting, chest pain, SOB, palpitations, abdominal pain, diarrhea, constipation or urinary symptoms. - Current Medication List Current Medications: Active Medications Acetaminophen (Tylenol -) 650 mg PO Q4H PRN PRN Reason: FEVER Bacitracin (Bacitracin -) 1 applic TP DAILY LEOLA Last Admin: 08/12/18 09:59 Dose: 1 applic Clotrimazole (Gyne-Lotrimin -) 1 applic VG HS LEOLA Last Admin: 08/11/18 21:06 Dose: 1 applic Vancomycin HCl (Vancomycin (Pre-Docked)) 1,000 mg in 250 mls @ 166.667 mls/hr IVPB Q12H LEOLA; Protocol Last Admin: 08/12/18 10:45 Dose: 166.667 mls/hr Piperacillin Sod/Tazobactam (Sod 4.5 gm/ Dextrose) 100 mls @ 200 mls/hr IVPB Q8H-IV LEOLA; Protocol Last Admin: 08/12/18 09:58 Dose: 200 mls/hr Lactobacillus Acidophilus (Bacid -) 1 tab PO BID LEOLA Last Admin: 08/12/18 09:58 Dose: 1 tab Pantoprazole Sodium (Protonix -) 40 mg PO DAILY LEOLA Last Admin: 08/12/18 09:58 Dose: 40 mg - Objective Vital Signs: Vital Signs Temperature 97.9 F 08/12/18 06:27 Pulse Rate 66 08/12/18 06:27 Respiratory Rate 18 08/12/18 06:27 Blood Pressure 99/60 08/12/18 06:27 O2 Sat by Pulse Oximetry (%) 100 08/12/18 09:00 Vital Signs Period Temp Pulse Resp BP Sys/Morton Pulse Ox Last 24 Hr 97.9 F-98.1 F 54-66 18-18 99-107/60-71 100-100 Constitutional: Yes: Well Nourished, No Distress, Calm Eyes: Yes: Conjunctiva Clear, EOM Intact HENT: Yes: Atraumatic, Normocephalic Neck: Yes: Supple, Trachea Midline Cardiovascular: Yes: Regular Rate and Rhythm, S1, S2 Respiratory: Yes: Regular, CTA Bilaterally Gastrointestinal: Yes: Normal Bowel Sounds, Soft. No: Tenderness ...Rectal Exam: Yes: Deferred Genitourinary: No: CVA Tenderness - Left, CVA Tenderness - Right Breast(s): No: Discharge from Nipple, Gynecomastia, Mass Musculoskeletal: No: Muscle Pain, Muscle Weakness Extremities: Yes: Erythema (dorsum left thumb). No: Cool, Cyanosis Edema: Yes Edema: LUE: 1+ Integumentary: Yes: Erythema. No: Incision, Jaundice, Rash, Skin Tear Wound/Incision: Yes: Clean/Dry, Open to air, Reddened. No: Draining, Bleeding, Excoriated, Unapproximated Neurological: Yes: Alert, Oriented Psychiatric: Yes: Alert, Oriented Labs: CBC, BMP 08/12/18 09:45 08/12/18 09:45 Problem List - Problems (1) Dog bite of left hand without complication Assessment/Plan: 28yo female with left hand dog bite with, no acute surgical intervention is indicated, erythema improving and motion improved apprriate screening for communicable disease and inoculation Tentanus ID for IV and oral antibitics elevation of left arm above the heart will follow peripherally discharge at the discretion of the primary team on oral antibiotics Thank you for the opportunity to participate in the care of this patient. Code(s): S61.452A - OPEN BITE OF LEFT HAND, INITIAL ENCOUNTER; W54.0XXA - BITTEN BY DOG, INITIAL ENCOUNTER Qualifiers: Encounter type: initial encounter Qualified Code(s): S61.452A - Open bite of left hand, initial encounter; W54.0XXA - Bitten by dog, initial encounter (2) Dog bite of left hand Code(s): S61.452A - OPEN BITE OF LEFT HAND, INITIAL ENCOUNTER; W54.0XXA - BITTEN BY DOG, INITIAL ENCOUNTER Qualifiers: Encounter type: initial encounter Qualified Code(s): S61.452A - Open bite of left hand, initial encounter; W54.0XXA - Bitten by dog, initial encounter (3) Infected dog bite Code(s): W54.0XXA - BITTEN BY DOG, INITIAL ENCOUNTER; L08.9 - LOCAL INFECTION OF THE SKIN AND SUBCUTANEOUS TISSUE, UNSP (4) Infection of left hand due to bite Code(s): S61.452A - OPEN BITE OF LEFT HAND, INITIAL ENCOUNTER; L08.9 - LOCAL INFECTION OF THE SKIN AND SUBCUTANEOUS TISSUE, UNSP Qualifiers: Encounter type: initial encounter Qualified Code(s): S61.452A - Open bite of left hand, initial encounter; L08.9 - Local infection of the skin and subcutaneous tissue, unspecified (5) Left arm cellulitis Code(s): L03.114 - CELLULITIS OF LEFT UPPER LIMB
[2018-08-12 15:11] VITALS: BP 104/65; PULSE 51; TEMP 98.2
--- NOTE | 2018-08-12 15:38 | PN ---
Teaching Attending Note Name of Resident: Julia Baer ATTENDING PHYSICIAN STATEMENT I saw and evaluated the patient. I reviewed the resident's note and discussed the case with the resident. I agree with the resident's findings and plan as documented. SUBJECTIVE: no pain, feels better , hand motion is better . OBJECTIVE: NAD CV : RRR Lungs: CTAB ext : no edema on LE . L hand with resolving erythema on dorsal area. can make a fist. a small wound on wrist with no diascharge . no erythema on forearm , no LAP in L axilla ASSESSMENT AND PLAN: 28 y/o lady with no significant PMH who presented after a dog bite . she was found to have cellulitis 1- L hand cellulitis . MRI reviewed. no OM or abscess. improved - d/w Dr. kumar - change to po - follow the wound cx after dc - advised to follow in resident clinic for evaluation of need to extend abx dispo : dc home today Microbiology 08/08/18 11:03 Blood Culture - Preliminary Blood - Peripheral Venous NO GROWTH OBTAINED AFTER 96 HOURS, INCUBATION TO CONTINUE FOR 1 DAYS. 08/08/18 11:03 Blood Culture - Preliminary Blood - Peripheral Venous NO GROWTH OBTAINED AFTER 96 HOURS, INCUBATION TO CONTINUE FOR 1 DAYS. 08/11/18 08:00 Gram Stain - Final Arm - Left Forearm Wound Culture - Preliminary NO GROWTH OBTAINED AFTER 24 HOURS INCUBATION, REINCUBATED.
--- NOTE | 2018-08-12 20:38 | DS ---
Physical Exam: SUBJECTIVE: Patient seen and examined at bedside this morning. No acute events overnight. Redness, swelling and pain much improved today. Vaginal itching has resolved. Patient has no new complaints. OBJECTIVE: Vital Signs Period Temp Pulse Resp BP Sys/Morton Pulse Ox Last 24 Hr 97.9 F-98.2 F 51-66 18-18 99-104/60-65 100-100 PHYSICAL EXAM GENERAL: Awake, alert, and fully oriented, in no acute distress. HEAD: Normal with no signs of trauma. EYES: PERRLA, EOMI, sclera anicteric, conjunctiva clear. No lid lag. EARS, NOSE, THROAT: Ears normal, nares patent, oropharynx clear without exudates. Moist mucous membranes. NECK: Normal range of motion, supple without lymphadenopathy, JVD, or masses. LUNGS: Breath sounds equal, clear to auscultation bilaterally. HEART: Regular rate and rhythm, normal S1 and S2 without murmur, rub or gallop. ABDOMEN: Soft, nontender, not distended, normoactive bowel sounds. LUE: +decreased erythema, swelling, tenderness of palm and anterior forearm. + dry, intact, nondraining wound in the anterior wrist. Able to fully flex, extend , adduct and abduct her fingers; able to flex and extend her wrists without experiencing any pain. UPPER EXTREMITIES: 2+ pulses, warm, well-perfused. No cyanosis. LOWER EXTREMITIES: 2+ pulses, warm, well-perfused. No calf tenderness. No peripheral edema. NEUROLOGICAL: AAOx3, Cranial nerves II-XII intact. Normal speech. Normal gait. PSYCHIATRIC: Cooperative. Good eye contact. Appropriate mood and affect. SKIN: Warm, dry, normal turgor, no rashes or lesions noted, normal capillary refill. Vaginal exam: Vulvar opening erythematous with minimal whitish discharge. LABS Laboratory Results - last 24 hr 08/12/18 08/12/18 09:45 09:45 WBC 7.3 RBC 4.39 Hgb 13.0 Hct 39.7 MCV 90.4 MCH 29.5 MCHC 32.7 RDW 13.1 Plt Count 284 D MPV 8.2 Absolute Neuts (auto) 5.3 Neutrophils % 73.0 Lymphocytes % 16.4 D Monocytes % 6.9 Eosinophils % 3.2 Basophils % 0.5 Nucleated RBC % 0 Sodium 139 Potassium 4.5 Chloride 108 H Carbon Dioxide 25 Anion Gap 6 L BUN 11 Creatinine 0.7 Creat Clearance w eGFR > 60 Random Glucose 85 Calcium 8.5 LUE MRI: Soft tissue swelling at the palpable site in the superior and anterior aspect of the left wrist compatible with cellulitis or edema. No evidence of abscess collection. No evidence of osteomyelitis. No evidence of flexor tendons tear or retraction. No evidence of tenosynovitis. HOSPITAL COURSE: Date of Admission:08/08/18 Date of Discharge: 08/12/18 Patient is a 28 year old female with no significant past medical history, presented with left hand wound, accompanied with pain, redness and swelling that started hours after a dog bite. Ortho, hand surgeon and ID consulted. MRI was done which revealed soft tissue swelling with no evidence of abscess, osteomyelitis or tenosynovitis. Tetanus vaccine was given and patient was started on IV Vancomycin and Zosyn. Blood cultures and wound cultures were negative. Patient continued to improve throughout her hospital stay. Patient was discharged on PO Augmentin and Bactrim with instructions to follow-up at the resident clinic after 1 week to determine need to stop or continue antibiotics. Minutes to complete discharge: 35 Discharge Summary Reason For Visit: CELLULITIS Condition: Improved - Instructions Diet, Activity, Other Instructions: You were seen because you had a wound from a dog bite. The wound was noted to be infected. Imaging was done which was negative of any concerns ( abscess, tendon rupture, or infection in bone ) . You were treated with antibiotics. Please continue the following medications as prescribed: 1. Augmentin 875 mg twice a day for 7 days. 2. Bactrim DS twice a day for 7 days. Keep the wound clean and dry at all times. Apply bacitracin ointment twice a day for 1 week. Please follow-up with your primary care doctor within 1 week. Call the resident medical clinic at the [facility] at [phone], to schedule an appointment with Dr. Fan (Thu 9am-12pm) or Dr. Garrison (Thurs 1-4pm). ( it is important to be seen before you finish your antibioptic treatment in case duration needs to be extended Call 911 or go to the ED if with any worsening redness, swelling, pain, fever, chills, nausea, vomiting, shortness of breath, belly pain, diarrhea or any new concerns noted. Referrals: Irma Perez MD [Staff Physician] - David Whitaker MD [Staff Physician] - Nicola Gage DO [Staff Physician] - Disposition: HOME - Home Medications Comprehensive Discharge Medication List: Ambulatory Orders Amoxicillin/Potassium Clav [Augmentin 875-125 Tablet] 1 each PO BID #14 tablet 08/12/18 Sulfamethoxazole/Trimethoprim [Bactrim Ds -] 1 tab PO BID #14 tablet 08/12/18 This patient is new to me today: No Emergency Visit: Yes ED Registration Date: 08/08/18 Care time: The patient presented to the Emergency Department on the above date and was hospitalized for further evaluation of their emergent condition. Critical Care patient: No - Discharge Referral Referred to [facility] No
== END 2018-08-12 17:41 | disposition home or self-care (01) | DRG 384 ==
LOC: JER 10:21 → JERBED 11:22 → J8W 19:41
PROVIDERS: ADMIT Internal Medicine; ATTEND Internal Medicine
DX: S61.552A Open bite of left wrist, initial encounter (principal); L03.114 Cellulitis of left upper limb; W54.0XXA Bitten by dog, initial encounter; Y92.89 Other specified places as the place of occurrence of the external cause; L08.9 Local infection of the skin and subcutaneous tissue, unspecified; B37.3 Candidiasis of vulva and vagina
CPT/HCPCS: 36415; 73090-TC-LT-FY; 73130-TC-LT-FY; 73220-LT; 80048; 80053; 81003; 81015; 83605; 83735; 84100; 84703; 85025; 85651; 86140; 87040; 87070; 87205; 90715; 97116-GP; 97161-GP; 99283-25; G0480